=== PATIENT | male | born 1935 | race Caucasian/White ===

== ENCOUNTER 2021-01-20 14:34 | Inpatient (IN) | payer MEDICARE ==
[~2021-01-20] VITALS: Ht 180.3 cm; Wt 72.6 kg
--- NOTE | ~2021-01-20 | EC ---
PATIENT:RITA SHARP DATE OF SERVICE: 01/20/21 SEX: M MEDICAL RECORD: [id number] DATE OF : 36 LOCATION:D.M2 D.212 AGE OF PATIENT: 85 ADMISSION DATE: 01/20/21 REFERRING PHYSICIAN: INTERPRETING PHYSICIAN: FANNIE IRENE MD ECHOCARDIOGRAM REPORT ECHO CHARGES 4 ECHO COMPLETE Date: 01/21/21 CLINICAL DIAGNOSIS: AFIB W/RVR ECHOCARDIOGRAPHIC MEASUREMENTS (adult normal given) AC root (d.<3.7cm) 4.1 cm LV Septum d (<1.2 cm> 0.7 cm Valve Excursion 1.4 cm LV Septum (systole) 1.1 cm Left Atria (s.<4.0cm> 4.3 cm LVPW d(<1.2cm) 0.8 cm RV (d.<2.3cm) 3.5 cm LVPW (sytole) 1.1 cm LV diastole(<5.6CM) 5.6 cm MV E-F(>70mm/sec) cm LV systole 4.4 cm LVOT Diameter 1.6 cm MV exc.(>10mm) 1.5 cm Est.ejection fraction (50-75%) % DOPPLER: LVIT cm/sec A 84 cm/sec E 56 cm/sec LA cm/sec RVSP 30 mmHg LVOT 111 cm/sec AOP1/2T m/s Asc. Ao 141 cm/sec RVOT 62 cm/sec RA cm/sec PA 76 cm/sec AV Gradient Peak 8.0 mmHg AV Mean 4.0 mmHg AV Area 2.2 cm MV Gradient Peak 4.7 mmHg MV Mean 1.7 mmHg MV Area cm COMMENTS: Binding Dyer: Alfonso LLOYD Hydraulic Assembler: 4 Dr. Irene TAPE# Pericardial Effusion N DATE OF SERVICE: Transthoracic echocardiogram FINDINGS: The left ventricle has mild concentric left ventricular hypertrophy. There are no regional wall motion abnormalities. The ejection fraction is 55%. Left atrium is mildly dilated. ECHOCARDIOGRAM REPORT [id number] RITA SHARP The right atrium appears to be mild to moderately dilated. The aortic valve is grossly normal. No evidence of stenosis or regurgitation. The mitral valve has mild mitral regurgitation. The tricuspid valve has mild tricuspid valve regurgitation with normal right ventricular systolic pressures. Pulmonic valve is not well visualized, but grossly normal. There is no pericardial effusion. There is no pleural effusion. There is no evidence of ASD or VSD. IMPRESSION: The patient has mild concentric left ventricular hypertrophy. The ejection fraction is normal. Diastolic function could not be assessed because the patient is in atrial fibrillation. TRANSINT:[id number] Voice Confirmation ID: [id number] DOCUMENT ID: [id number] FANNIE IRENE MD CC: [id number] DICTATION DATE: 01/21/21 1334 AIR CONDITIONING INSTALLER SUPERVISOR: 01/21/212126 ADM IN [place] [id number] [place] [id number]
--- NOTE | 2021-01-20 15:10 | NUR ---
PT BG 109
[2021-01-20 15:11] VITALS: BP 126/89
[2021-01-20 15:16] LABS: BASOPHILS 0.1 % (0-2); EOSINOPHILS 0.1 % (0-7); HEMATOCRIT 32.7 % (42.0-54.0); HEMOGLOBIN 11.3 g/dL (13.5-17.5); IMMATURE GRANULOCYTES 0.4 % (0-5); LYMPHOCYTE ABS# 0.56 10x3/uL (1.32-3.57); LYMPHOCYTES 3.5 % (15-50); MCH 29.7 pg (26.0-34.0); MCHC 34.6 g/dL (31.0-37.0); MCV 86.1 fL (80.0-100.0); MEAN PLATELET VOLUME 8.9 fL (7.4-10.4); MONOCYTES 8.9 % (2-11); RDW 13.2 % (11.5-14.5); WBC 16.2 10x3/uL (4.8-10.8)
[2021-01-20 15:19] LABS: PLATELET COUNT 417 10x3/uL (130-400)
[2021-01-20 15:29] LABS: CALC OSMOLALITY 283 mosm/kg (275-300); CALCIUM 8.8 mg/dL (8.5-10.1); CARBON DIOXIDE 26.2 mmol/L (21.0-32.0); CHLORIDE - SERUM 93 mmol/L (98-107); CREATININE - SERUM 2.4 mg/dL (0.6-1.3); GLUCOSE 111 mg/dL (74-106); POTASSIUM - SERUM 3.3 mmol/L (3.5-5.1); SODIUM 130 mmol/L (136-145); UREA NITROGEN 73 mg/dL (7-18); eGFR NON AFRICAN AMERICAN 27 mL/min (90-120)
[2021-01-20 15:33] LABS: APTT 48.1 SECONDS (22.8-39.4); INR 1.5 (0.85-1.17); PROTIME 16.8 SECONDS (11.6-15.0)
[2021-01-20 15:46] LABS: ALBUMIN 2.9 g/dL (3.4-5.0); ALKALINE PHOSPHATASE 77 U/L (30-120); ALT (SGPT) 82 U/L (10-68); BILIRUBIN - TOTAL 0.69 mg/dL (0.2-1.3); CKMB 12.2 U/L (0.0-3.6); CREATINE KINASE 528 UL (21-232); MAGNESIUM - SERUM 2.5 mg/dL (1.8-2.4); PROTEIN - SERUM 6.9 g/dL (6.4-8.2); TROPONIN-I 0.051 ng/mL (0.000-0.060)
[2021-01-20 17:29] VITALS: BP 140/82
--- NOTE | 2021-01-20 17:48 | NUR ---
PT UP TO BEDSIDE COMMODE. BACK TO BED WITHOUT INCODENT
--- NOTE | 2021-01-20 18:05 | NUR ---
REPORT GIVEN TO BARRERA HESTER, VERBAL ACKNOWLEDGMENT OBTAINED
--- NOTE | 2021-01-20 18:44 | NUR ---
TRANSFER FROM ER BY STRETCHER. OREINTED TO ROOM. CALL LIGHT IN REACH. WILL CONT. PLAN OF CARE.
--- NOTE | 2021-01-20 20:24 | NUR ---
PT ASKED ABOUT HOME MEDICATIONS. PT ONLY STATES THAT HE CANT TELL ME RIGHT NOW. PT CONCERNED WITH URINATING FREQUENTLY AND IS UNWILLING TO TALK ABOUT ANYTHING FURTHER. PT DID STATE THAT HE QUIT SMOKING 15 YEARS AGO AND DOES NOT HAVE A HX OF CARDIAC STENTS.
[2021-01-20 20:43] LABS: % SATURATION 15 % (15-55); IRON 30 ug/dl (35-150); TOTAL IRON BIND CAPACITY 197 ug/dl (260-445); UNSAT IRON BIND CAPACITY 167 ug/dl (150-375)
[2021-01-20 21:07] VITALS: BP 123/68
[2021-01-20 22:22] LABS: MAGNESIUM - SERUM 2.4 mg/dL (1.8-2.4); THYROID STIMULATING HORMONE 1.04 uIU/mL (0.36-3.74)
[2021-01-21 01:57] VITALS: BP 120/56
--- NOTE | 2021-01-21 04:22 | NUR ---
PT HAS BEEN [id number] WITH CARE. WILL SCREAM OUT FOR HELP BUT NOT SAY ANYTHING WHEN SOMEONE ATTEMPTS TO MEET HIS NEEDS. PT PINCHING CARDIZEM GTT TUBING TO ATTEMPT TO STOP THE INFUSION. HR 90-120 UCAF. PT WILL NOT ANSWER QUESTIONS WHEN STAFF TRYS TO ASSESS. UABLE TO OBTAIN ADMISSION HX OR HOME MEDS.
--- NOTE | 2021-01-21 04:37 | NUR ---
PT AGGRESSIVE WITH LAB, BEING RUDE AND DEMANDING. INFORMED PT WE NEEDED A URINE SAMPLE, NOW PT IS BEING INCONT.
[2021-01-21 06:14] VITALS: BP 131/59
[2021-01-21] MEDS ORDERED: LOSARTAN-HCTZ1 EAC1 PO (07:17)
[2021-01-21] MEDS ORDERED: LOPRESSOR25 MG PO (07:18)
[2021-01-21] MEDS ORDERED: ELIQUIS5 MG PO (07:18)
[2021-01-21 07:24] LABS: BASOPHILS 0 % (0-2); EOSINOPHILS 0.1 % (0-7); HEMATOCRIT 30.7 % (42.0-54.0); HEMOGLOBIN 10.3 g/dL (13.5-17.5); IMMATURE GRANULOCYTES 0.4 % (0-5); LYMPHOCYTE ABS# 0.56 10x3/uL (1.32-3.57); LYMPHOCYTES 4.2 % (15-50); MCH 29.2 pg (26.0-34.0); MCHC 33.6 g/dL (31.0-37.0); MEAN PLATELET VOLUME 9.1 fL (7.4-10.4); MONOCYTES 11.5 % (2-11); NEUTROPHIL ABS# 11.19 10x3/uL (1.78-5.38); NEUTROPHILS 83.8 % (40-80); PLATELET COUNT 450 10x3/uL (130-400); RBC 3.53 10x6/uL (4.20-6.10); RDW 13.3 % (11.5-14.5); WBC 13.4 10x3/uL (4.8-10.8)
[2021-01-21 07:39] LABS: ALBUMIN 2.8 g/dL (3.4-5.0); ANION GAP 15.9 mmol/L (8-16); BILIRUBIN - TOTAL 0.65 mg/dL (0.2-1.3); CALCIUM 8.1 mg/dL (8.5-10.1); CARBON DIOXIDE 24.2 mmol/L (21.0-32.0); CREATININE - SERUM 1.7 mg/dL (0.6-1.3); MAGNESIUM - SERUM 2.1 mg/dL (1.8-2.4); POTASSIUM - SERUM 3.1 mmol/L (3.5-5.1); PROTEIN - SERUM 5.8 g/dL (6.4-8.2)
[2021-01-21 08:12] VITALS: BP 141/70
--- NOTE | 2021-01-21 08:30 | NUR ---
CARNEY CATH INSERTED FOR URINARY FREQENCY AND RETENTION USUSING 16 FR CATH AND 10CC BULB. OUTPUT CLEAR AND YELLOW.
--- NOTE | 2021-01-21 09:00 | NUR ---
URINE SPECIMEN COLLECTED AND TAKEN TO LAB. WILL MONITOR.
[2021-01-21 09:55] LABS: BILIRUBIN NEGATIVE (NEGATIVE); KETONE SMALL mg/dL (NEGATIVE); NITRITE NEGATIVE (NEGATIVE); UROBILINOGEN NORMAL mg/dL (< 2)
[2021-01-21 09:56] LABS: SQUAMOUS EPITHELIAL RARE HPF (0-4); WHITE CELLS - URINE 0-5 HPF (0-1)
--- NOTE | 2021-01-21 14:59 | NUR ---
HAS CONVERTED TO SR WITH PACS AND PVCS. WILL CONT. PLAN OF CARE.
[2021-01-21 19:00] VITALS: BP 126/76
--- NOTE | 2021-01-21 19:37 | NUR ---
RECEIVED REPORT, WILL ASSUME CARE OF PT, SLEEPING, NO DISTRESS NOTICED AT THIS TIME, CALL LIGHT IN REACH, SRX2, BED ALARM IS ON, WILL CONTINUE PLAN OF CARE
[2021-01-22] VITALS: BP 157/85
[2021-01-22 04:00] VITALS: BP 175/97
--- NOTE | 2021-01-22 04:08 | NUR ---
I have reviewed this patient and I concur with the Shift Assessment completed by the Licensed Practical Nurse today this shift.
[2021-01-22 05:21] LABS: BASOPHILS 0.1 % (0-2); EOSINOPHILS 0.3 % (0-7); HEMATOCRIT 33.2 % (42.0-54.0); HEMOGLOBIN 10.8 g/dL (13.5-17.5); IMMATURE GRANULOCYTES 0.3 % (0-5); LYMPHOCYTE ABS# 0.65 10x3/uL (1.32-3.57); LYMPHOCYTES 6.4 % (15-50); MCH 28.9 pg (26.0-34.0); MCHC 32.5 g/dL (31.0-37.0); MCV 88.8 fL (80.0-100.0); MEAN PLATELET VOLUME 8.5 fL (7.4-10.4); MONOCYTES 16.8 % (2-11); NEUTROPHIL ABS# 7.75 10x3/uL (1.78-5.38); NEUTROPHILS 76.1 % (40-80); PLATELET COUNT 372 10x3/uL (130-400); RBC 3.74 10x6/uL (4.20-6.10); RDW 13.2 % (11.5-14.5); WBC 10.2 10x3/uL (4.8-10.8)
[2021-01-22 05:48] LABS: ALBUMIN 2.7 g/dL (3.4-5.0); ANION GAP 13.8 mmol/L (8-16); BILIRUBIN - TOTAL 0.69 mg/dL (0.2-1.3); CALCIUM 8.7 mg/dL (8.5-10.1); CARBON DIOXIDE 24.5 mmol/L (21.0-32.0); MAGNESIUM - SERUM 1.9 mg/dL (1.8-2.4); POTASSIUM - SERUM 3.3 mmol/L (3.5-5.1); PROTEIN - SERUM 6.2 g/dL (6.4-8.2)
[2021-01-22 06:02] LABS: CREATININE - SERUM 1.2 mg/dL (0.6-1.3)
[2021-01-22 07:00] VITALS: BP 162/86
--- NOTE | 2021-01-22 08:00 | NUR ---
AM MEDS GIVEN AT THIS TIME. PT PULLED UP IN BED, AND ASSISTED SET UP WITH BREAKFAST. RR EVEN NON LABORED ON ROOM AIR. PT AWAKE AND ALERT, DENIES ANY NEEDS. CLWR.
[2021-01-22 11:00] VITALS: BP 156/84
--- NOTE | 2021-01-22 12:23 | NUR ---
SPOKE WITH PT SON AND PT AT THIS TIME REGARDING TREATMENT PLAN AND MEDICATIONS/VITAL SIGNS. PT SHORT TEMPERED NOTED BUT CALM. PT DENIES ANY NEEDS AT THIS TIME. CLWR.
[2021-01-22 14:31] VITALS: Ht 180.3 cm; Wt 72.6 kg
--- NOTE | 2021-01-22 14:57 | NUR ---
REHAB NOTE: WENT TO ROOM TO DISCUSS REFERRAL TO INPATIENT REHAB. PATIENT IS VERY ARGUMENTATIVE AND SON AT BEDSIDE IS NOT ASSISTING TO MAKE THE SITUTATION BETTER. PT AND HIS SON STATE THAT HE WILL NOT STAY FOR 7-10 DAYS OF THERAPY, THAT HE PROBABLY WOULD NOT EVEN STAY 3 DAYS. THAT HE IS READY TO LEAVE AND THEY WANT OTHER OPTIONS. I HAVE EXPLAINED THIS TO THE JUAN MONTENEGRO RN, AND WE WILL WAIT TO SEE IF PATIENT CHANGES HIS MIND. PATIENT HAS [facility] AND WILL HAVE TO HAVE PREAUTHORIZATION IN ORDER TO COME, AND THIS HAS BEEN EXPLAINED TO THE PATIENT. LANDON SMITH RN CLINICAL LIAISON INPATIENT REHAB.
--- NOTE | 2021-01-22 14:59 | MORECARE ---
CASE MANAGEMENT DISCHARGE SUMMARY PATIENT: FABRICIO MONTES UNIT: [id number] ADM DATE: 01/20/21 AGE: 85 : 36 SEX: M ROOM/BED: D.2120 AUTHOR: SANTHOSH,DOC PHYSICIAN: REFERRING PHYSICIAN: MAX JEFFRIES DO DATE OF SERVICE: 01/22/21 Case Management Discharge Planning Summary CT Patient Name: FABRICIO MONTES Attending MD : MAX PETIT Medical Record: [id number] Encounter : [id number] Facility : [address] [place] [address] Admission Date : 116:34 Center Discharge Date : [address] [place] [address] Date of : DC Plan ID : [id number] Age/Sex/Martia : 85/ M/D Printed on : 01/22/21 14:57 CT DCP Review Details Anticipated D/C: Expected LOS : Case Status : INITIATED - Initial Reviewe: [id number] - Tarah Quintana Initial Review: 01/22/2021 Planned Disposi: 01 - Home or Self Care (Routine Discharge) Final Discharge: - Final Reviewer : : Final Review : DCP Focus Questions & Answers DCP Screen High Risk Factors: Poor social support DCP Evaluation Patient and/or caregiver agree upon recommended No discharge plan? Patient's current cognitive status: *Oriented to person, place, situation, time and present Patient gives permission to discuss discharge Fabricio Montes - son - [phone] plans with: (name, relationship and number) Patient's ability to cope with chronic illness d. No chronic illness Alternate discharge plan (if recommended plan not May need home health if not in agreement agreed upon by patient and/or caregiver): to inpatient rehab Functional screen assessment: No issues identified Physical Status: Mobility impaired Equipment needed for post hospitalization: None Is there a likelihood that the patient will Yes require additional services to return to the preadmission environment? Functional screen comments: New onset of weakness and falling Living Arrangements: Home Alone with Support Partial Dependence, assistance required for: Ambulation / Mobility Other Equipment comments: May need a walker at discharge Results of this evaluation have been discussed Patient with: Results of this evaluation have been discussed Family with: Patient with capacity for self-care or can be No cared for in same environment as prior to hospitalization? Baseline cognitive status: *Oriented to person, place, situation, time and present Would patient like to participate in any Care Not applicable Coordination programs (if applicable): Equipment in use: None Psychosocial status: Adult with physical limitations Resources / Services in place: None Problems identified by the patient regarding Lives alone with frequent falls discharge: DCP Re-evaluation Would patient like to participate in any Care Not applicable Coordination programs (if applicable): [facility] FABRICIO MONTES MR#: [id number] /Age/Sex/Pzjyre30-Woy-93 /85/M /D Attending Physician Name: YORDAN JEFFRIES [id number] Patient Account:[id number] [facility] Page -1 of 1 All edits/amendments must be made on the electronic document DICTATION DATE: 01/22/211456 WATERSHED ENGINEER: KELSIE 01/22/211456 RPT#: [id number] DC DATE: STATUS: ADM IN [facility] [address] [place] [address] END OF REPORT
[2021-01-22 15:00] VITALS: BP 163/85
--- NOTE | 2021-01-22 15:36 | NUR ---
MEDS GIVEN PER EMAR INCLUDING PRN TYLENOL D/T NECK/SHOULDER PAIN. PT RR EVEN NON LABORED ON ROOM AIR. PT AWAKE AND ALRT. SON AT BEDSIDE. NO NEEDS VOICED. CLWR.
--- NOTE | 2021-01-22 15:59 | MORECARE ---
CASE MANAGEMENT DISCHARGE SUMMARY PATIENT: FABRICIO MONTES UNIT: [id number] ADM DATE: 01/20/21 AGE: 85 : 36 SEX: M ROOM/BED: D.2120 AUTHOR: SANTHOSH,DOC PHYSICIAN: REFERRING PHYSICIAN: MAX JEFFRIES DO DATE OF SERVICE: 01/22/21 Case Management Discharge Planning Summary CT Patient Name: FABRICIO MONTES Attending MD : MAX PETIT Medical Record: [id number] Encounter : [id number] Facility : [address] [place] [address] Medical Admission Date : 116:34 Center Discharge Date : [address] [place] [address] Date of : DC Plan ID : [id number] Age/Sex/Martia : 85/ M/D Printed on : 01/22/21 15:58 CT DCP Review Details Anticipated D/C: Expected LOS : Case Status : INITIATED - Initial Reviewe: [id number] - Tarah Quintana Initial Review: 01/22/2021 Planned Disposi: 01 - Home or Self Care (Routine Discharge) Final Discharge: - Final Reviewer : : Final Review : Comments CT Entered Date Type Reviewer 01/22/21 14:49 CT Discharge Planning Tarah Quintana Comment CM was called to the room by the patient's nurse per son's request to discuss discharge planning/needs. Patient in agreement to discuss with son in the room. Son states his dad lives alone. States "he can't go home alone like this." States he is unable to stay with his father, but he may have someone else stay with him. I discussed availability of SNF, inpatient rehab and home health. They both seem confused as to why he can't stay in acute setting for rehab. I explained the difference between acute care and rehab care and 3 hours of therapy on inpatient rehab vs one hour in a skilled facility. Patient states he is not going to a fpc. Patient and son both seem agreeable to home health on discharge. They both seem unsure about inpatient rehab, but would like me to see if his insurance will authorize it prior to going there. I explained to them both, that even if they authorize rehab and he gains his strength and wants to go home, he can go home if he desires. Patient signs a ZEE for [facility] inpatient rehab so they may screen him and get a PA from insurance. They both seem uncertain if that is the final plan and will re evaluate tomorrow. CM will continue to follow and assist with discharge planning/needs. DCP Focus Questions & Answers DCP Screen High Risk Factors: Poor social support DCP Evaluation Patient and/or caregiver agree upon recommended No discharge plan? Patient's current cognitive status: *Oriented to person, place, situation, time and present Patient gives permission to discuss discharge Fabricio Montes Jr - elliott - [phone] plans with: (name, relationship and number) Patient's ability to cope with chronic illness d. No chronic illness Alternate discharge plan (if recommended plan not May need home health if not in agreement agreed upon by patient and/or caregiver): to inpatient rehab Functional screen assessment: No issues identified Physical Status: Mobility impaired Equipment needed for post hospitalization: None Is there a likelihood that the patient will Yes require additional services to return to the preadmission environment? Functional screen comments: New onset of weakness and falling Living Arrangements: Home Alone with Support Partial Dependence, assistance required for: Ambulation / Mobility Other Equipment comments: May need a walker at discharge Results of this evaluation have been discussed Patient with: Results of this evaluation have been discussed Family with: Patient with capacity for self-care or can be No cared for in same environment as prior to hospitalization? Baseline cognitive status: *Oriented to person, place, situation, time and present Would patient like to participate in any Care Not applicable Coordination programs (if applicable): Equipment in use: None Psychosocial status: Adult with physical limitations Resources / Services in place: None Problems identified by the patient regarding Lives alone with frequent falls discharge: DCP Re-evaluation Would patient like to participate in any Care Not applicable Coordination programs (if applicable): [facility] FABRICIO MONTES MR#: [id number] /Age/Sex/Raxoep18-Qbw-36 /85/M /D Attending Physician Name: YORDAN JEFFRIES [id number] Patient Account:[id number] [facility] Page -1 of 1 All edits/amendments must be made on the electronic document DICTATION DATE: 01/22/211557 BEVERAGE MANAGER: KELSIE 01/22/211557 RPT#: [id number] DC DATE: STATUS: ADM IN [facility] [address] [place] [address] END OF REPORT
--- NOTE | 2021-01-22 19:08 | NUR ---
CALLED TO ROOM WITH C/O NOT HAVING WHAT HE NEEDS TO BRUSH HIS TEETH. LEFT ROOM AND RETURNED WITH SUPPLIES FOR HIM TO BRUSH HIS TEETH. ALERT AND ORIENTED X4. REMAINS BEDFAST. USES URINAL IN BED. IV TO LT AC AND TO RT FA SL. TELEMETRY IN PLACE. DENIES ANY OTHER NEEDS AT THIS TIME.
[2021-01-22 20:00] VITALS: BP 139/79
[2021-01-23 04:00] VITALS: BP 152/85
[2021-01-23 05:37] LABS: BASOPHILS 0.1 % (0-2); EOSINOPHILS 1.4 % (0-7); HEMATOCRIT 30.6 % (42.0-54.0); HEMOGLOBIN 9.8 g/dL (13.5-17.5); IMMATURE GRANULOCYTES 0.4 % (0-5); LYMPHOCYTES 7.6 % (15-50); MCH 28.5 pg (26.0-34.0); MONOCYTES 17.1 % (2-11); NEUTROPHIL ABS# 6.76 10x3/uL (1.78-5.38); NEUTROPHILS 73.4 % (40-80); PLATELET COUNT 374 10x3/uL (130-400); RBC 3.44 10x6/uL (4.20-6.10); RDW 13.3 % (11.5-14.5); WBC 9.2 10x3/uL (4.8-10.8)
[2021-01-23 06:08] LABS: ALBUMIN 2.4 g/dL (3.4-5.0); ANION GAP 11.4 mmol/L (8-16); BILIRUBIN - TOTAL 0.59 mg/dL (0.2-1.3); CALCIUM 7.7 mg/dL (8.5-10.1); CARBON DIOXIDE 26.1 mmol/L (21.0-32.0); CREATININE - SERUM 1.1 mg/dL (0.6-1.3); MAGNESIUM - SERUM 1.6 mg/dL (1.8-2.4); POTASSIUM - SERUM 3.5 mmol/L (3.5-5.1); PROTEIN - SERUM 5.7 g/dL (6.4-8.2)
[2021-01-23 07:00] VITALS: BP 149/81
--- NOTE | 2021-01-23 11:24 | MORECARE ---
CASE MANAGEMENT DISCHARGE SUMMARY PATIENT: FABRICIO MONTES UNIT: [id number] ADM DATE: 01/20/21 AGE: 85 : 36 SEX: M ROOM/BED: D.2120 AUTHOR: SANTHOSH,DOC PHYSICIAN: REFERRING PHYSICIAN: MAX JEFFRIES DO DATE OF SERVICE: 01/23/21 Case Management Discharge Planning Summary CT Patient Name: FABRICIO MONTES Attending MD : MAX PETIT Medical Record: [id number] Encounter : [id number] Facility : [address] [place] [address] Medical Admission Date : 116:34 Center Discharge Date : [address] [place] [address] Date of : DC Plan ID : [id number] Age/Sex/Martia : 85/ M/D Printed on : 01/23/21 11:23 CT DCP Review Details Anticipated D/C: Expected LOS : Case Status : INITIATED - Initial Reviewe: [id number] - Tarah Quintana Initial Review: 01/22/2021 Planned Disposi: 01 - Home or Self Care (Routine Discharge) Final Discharge: - Final Reviewer : : Final Review : Comments CT Entered Date Type Reviewer 01/22/21 14:49 CT Discharge Planning Tarah Quintana Comment CM was called to the room by the patient's nurse per son's request to discuss discharge planning/needs. Patient in agreement to discuss with son in the room. Son states his dad lives alone. States "he can't go home alone like this." States he is unable to stay with his father, but he may have someone else stay with him. I discussed availability of SNF, inpatient rehab and home health. They both seem confused as to why he can't stay in acute setting for rehab. I explained the difference between acute care and rehab care and 3 hours of therapy on inpatient rehab vs one hour in a skilled facility. Patient states he is not going to a care home. Patient and son both seem agreeable to home health on discharge. They both seem unsure about inpatient rehab, but would like me to see if his insurance will authorize it prior to going there. I explained to them both, that even if they authorize rehab and he gains his strength and wants to go home, he can go home if he desires. Patient signs a ZEE for [facility] inpatient rehab so they may screen him and get a PA from insurance. They both seem uncertain if that is the final plan and will re evaluate tomorrow. CM will continue to follow and assist with discharge planning/needs. DCP Focus Questions & Answers DCP Screen High Risk Factors: Poor social support DCP Evaluation Patient and/or caregiver agree upon recommended No discharge plan? Patient's current cognitive status: *Oriented to person, place, situation, time and present Patient gives permission to discuss discharge Fabricio Montes Jr - elliott - [phone] plans with: (name, relationship and number) Patient's ability to cope with chronic illness d. No chronic illness Alternate discharge plan (if recommended plan not May need home health if not in agreement agreed upon by patient and/or caregiver): to inpatient rehab Functional screen assessment: No issues identified Physical Status: Mobility impaired Equipment needed for post hospitalization: None Is there a likelihood that the patient will Yes require additional services to return to the preadmission environment? Functional screen comments: New onset of weakness and falling Living Arrangements: Home Alone with Support Partial Dependence, assistance required for: Ambulation / Mobility Other Equipment comments: May need a walker at discharge Results of this evaluation have been discussed Patient with: Results of this evaluation have been discussed Family with: Patient with capacity for self-care or can be No cared for in same environment as prior to hospitalization? Baseline cognitive status: *Oriented to person, place, situation, time and present Would patient like to participate in any Care Not applicable Coordination programs (if applicable): Equipment in use: None Psychosocial status: Adult with physical limitations Resources / Services in place: None Problems identified by the patient regarding Lives alone with frequent falls discharge: DCP Re-evaluation Would patient like to participate in any Care Not applicable Coordination programs (if applicable): [facility] FABRICIO MONTES MR#: [id number] /Age/Sex/Labqbf73-Xjr-83 /85/M /D Attending Physician Name: YORDAN JEFFRIES [id number] Patient Account:[id number] [facility] Page -1 of 1 All edits/amendments must be made on the electronic document DICTATION DATE: 01/23/21 112 LARGE ANIMAL VETERINARIAN: KELSIE 01/23/21 1123 RPT#: [id number] DC DATE: STATUS: ADM IN [facility] [address] [place] [address] END OF REPORT
[2021-01-23 12:00] VITALS: BP 113/86
[2021-01-23 15:00] VITALS: BP 130/89
--- NOTE | 2021-01-23 16:15 | NUR ---
REHAB PRESCREEN This patient is now agreeable to inpatient rehab. OT evaluation is pending. We will begin prior authorization process when completed. Thank you for this referral! Fern Estrada, [employer] [facility] [employer]
--- NOTE | 2021-01-23 16:48 | PN ---
PATIENT:RITA SHARP MEDICAL RECORD: [id number] LOCATION:[address] ADMISSION DATE: 01/20/21 PROGRESS NOTE DATE OF SERVICE: 01/22/2021 ADDENDUM This note is a clarification on the evaluation done by Kiki Varela APN yesterday December. The evaluation indicates that the patient has clear evidence of dementia, but no evidence of aggressive behavior or suicidal thought. I agree with her assessment, but the referral to inpatient psychiatric care is not appropriate. The patient does not have elements of dangerousness that would necessitate this level of care and his outpatient psychiatric needs can be met to fully evaluate the situation. Simply needing an evaluation of a dementing process and/or supervision associated with dementia is not criteria for an inpatient geriatric stay. TRANSINT:[id number] Voice Confirmation ID: [id number] DOCUMENT ID: [id number] DAVID HERNANDEZ MD at 1648 CC: [id number] DICTATION DATE: 01/22/21 171 CUSTOMER MARKETING ASSISTANT: 01/23/21 0040 ADM IN [facility] [address] [place] [address]
--- NOTE | 2021-01-23 18:03 | NUR ---
OT NOTE: PT COMPLETED SUPINE TO SIT WITH CGA. PT COMPLETED ADL MOB WITH CGA-MIN A USING RW. [id number] THANK YOU, GASTON CHÁVEZ
[2021-01-23 19:00] VITALS: BP 133/85
--- NOTE | 2021-01-23 19:46 | NUR ---
RECIEVED UP IN CHAIR WATCHING TV. ALERT AND ORIENTED X4. UP WITH ASSIST. IV TO LT FA SL. TELEMETRY IN PLACE. CONT TO BLADDER TRAIN. DENIES ANY NEEDS AT THIS TIME.
--- NOTE | 2021-01-24 02:27 | MORECARE ---
CASE MANAGEMENT DISCHARGE SUMMARY PATIENT: FABRICIO MONTES UNIT: [id number] ADM DATE: 01/20/21 AGE: 85 : 36 SEX: M ROOM/BED: D.2120 AUTHOR: SANTHOSH,DOC PHYSICIAN: REFERRING PHYSICIAN: MAX JEFFRIES DO DATE OF SERVICE: 01/24/21 Case Management Discharge Planning Summary CT Patient Name: FABRICIO MONTES Attending MD : MAX PETIT Medical Record: [id number] Encounter : [id number] Facility : [address] [place] [address] Admission Date : 116:34 Center Discharge Date : [address] [place] [address] Date of : DC Plan ID : [id number] Age/Sex/Martia : 85/ M/D Printed on : 01/24/21 2:25 CT DCP Review Details Anticipated D/C: Expected LOS : Case Status : INITIATED - Initial Reviewe: [id number] - Tarah Quintana Initial Review: 01/22/2021 Planned Disposi: 01 - Home or Self Care (Routine Discharge) Final Discharge: - Final Reviewer : : Final Review : Comments CT Entered Date Type Reviewer 01/24/21 1:56 CT Discharge Planning Areli Timmons Comment CM was called to patient room to discuss d/c planning/ need. Patient and his son are in room and CM was asked when he was going to rehab. CM stated that I thought that you all was still deciding on what to do at discharge. Son stated we agreed to go to rehab because he can't go home alone the way he is. He has agreed to stay for the 7days now. CM called inpatient rehab to see if auth had been started. Kusum stated that no it was put on hold. CM went back and spoke with son that rehab will send off for auth from insurance and wait to see if patient approved. son asked if rooms are setup the same as in acute hospital. CÉSAR explained that patient they have double occupancy rooms and he stated that was a no go, He said the patient will never agree to go there and share a room. CÉSAR explained that [facility] has private rooms if wants CM to send referral there. Patient / son both agree for referral to be sent to [facility]. CM sent referral will await auth. 01/22/21 14:49 CT Discharge Planning Tarah Quintana Comment CM was called to the room by the patient's nurse per son's request to discuss discharge planning/needs. Patient in agreement to discuss with son in the room. Son states his dad lives alone. States "he can't go home alone like this." States he is unable to stay with his father, but he may have someone else stay with him. I discussed availability of SNF, inpatient rehab and home health. They both seem confused as to why he can't stay in acute setting for rehab. I explained the difference between acute care and rehab care and 3 hours of therapy on inpatient rehab vs one hour in a skilled facility. Patient states he is not going to a alf. Patient and son both seem agreeable to home health on discharge. They both seem unsure about inpatient rehab, but would like me to see if his insurance will authorize it prior to going there. I explained to them both, that even if they authorize rehab and he gains his strength and wants to go home, he can go home if he desires. Patient signs a ZEE for [facility] inpatient rehab so they may screen him and get a PA from insurance. They both seem uncertain if that is the final plan and will re evaluate tomorrow. CM will continue to follow and assist with discharge planning/needs. DCP Focus Questions & Answers DCP Screen High Risk Factors: Poor social support DCP Evaluation Patient's ability to cope with chronic illness d. No chronic illness Patient gives permission to discuss discharge Fabricio Montes Jr - elliott - [phone] plans with: (name, relationship and number) Patient's current cognitive status: *Oriented to person, place, situation, time and present Patient and/or caregiver agree upon recommended No discharge plan? Physical Status: Mobility impaired Functional screen assessment: No issues identified Alternate discharge plan (if recommended plan not May need home health if not in agreement agreed upon by patient and/or caregiver): to inpatient rehab Partial Dependence, assistance required for: Ambulation / Mobility Living Arrangements: Home Alone with Support Functional screen comments: New onset of weakness and falling Is there a likelihood that the patient will Yes require additional services to return to the preadmission environment? Equipment needed for post hospitalization: None Baseline cognitive status: *Oriented to person, place, situation, time and present Patient with capacity for self-care or can be No cared for in same environment as prior to hospitalization? Results of this evaluation have been discussed Family with: Results of this evaluation have been discussed Patient with: Other Equipment comments: May need a walker at discharge Would patient like to participate in any Care Not applicable Coordination programs (if applicable): Equipment in use: None Psychosocial status: Adult with physical limitations Resources / Services in place: None Problems identified by the patient regarding Lives alone with frequent falls discharge: DCP Re-evaluation Would patient like to participate in any Care Not applicable Coordination programs (if applicable): [facility] FABRICIO MONTES MR#: [id number] /Age/Sex/Febzda68-Ogs-85 //M /D Attending Physician Name: YORDAN JEFFRIES [id number] Patient Account:[id number] [facility] Page -1 of 1 All edits/amendments must be made on the electronic document DICTATION DATE: 01/24/21224 AUTOMATIC COIN MACHINE MECHANIC: KELSIE 01/24/21224 RPT#: [id number] DC DATE: STATUS: ADM IN [facility] [address] [place] [address] END OF REPORT
[2021-01-24 04:00] VITALS: BP 165/94
[2021-01-24 05:23] LABS: BASOPHILS 0.1 % (0-2); EOSINOPHILS 1.3 % (0-7); HEMATOCRIT 31.9 % (42.0-54.0); HEMOGLOBIN 10.5 g/dL (13.5-17.5); IMMATURE GRANULOCYTES 0.5 % (0-5); LYMPHOCYTE ABS# 0.76 10x3/uL (1.32-3.57); LYMPHOCYTES 7.3 % (15-50); MCH 29.2 pg (26.0-34.0); MCHC 32.9 g/dL (31.0-37.0); MCV 88.6 fL (80.0-100.0); MEAN PLATELET VOLUME 9.2 fL (7.4-10.4); NEUTROPHIL ABS# 7.78 10x3/uL (1.78-5.38); NEUTROPHILS 74.8 % (40-80); PLATELET COUNT 401 10x3/uL (130-400); RDW 13.4 % (11.5-14.5); WBC 10.4 10x3/uL (4.8-10.8)
[2021-01-24 06:03] LABS: ALBUMIN 2.7 g/dL (3.4-5.0); BILIRUBIN - TOTAL 0.57 mg/dL (0.2-1.3); CALCIUM 8.1 mg/dL (8.5-10.1); CARBON DIOXIDE 23.7 mmol/L (21.0-32.0); CREATININE - SERUM 1.1 mg/dL (0.6-1.3); MAGNESIUM - SERUM 1.6 mg/dL (1.8-2.4); POTASSIUM - SERUM 3.7 mmol/L (3.5-5.1); PROTEIN - SERUM 6.2 g/dL (6.4-8.2)
[2021-01-24 07:54] VITALS: BP 159/76
--- NOTE | 2021-01-24 10:32 | NUR ---
PT VERY ARGUMENTATIVE ABOUT EVERY INTERVENTION OR EDUCATION PROVIDED BY RN. REPEATEDLY STATING HE CAN GET UP BY HIMSELF BUT IS CLEARLY VERY UNSTEADY AND A HIGH FALL RISK. NURSE ATTEMPTED TO EDUCATE PATIENT ON FALL RISKS. HE REFUSED ANY EDUCATION STATING HE NEEDED PT. PT IS ALREADY CONSULTED AND PATIENT WAS INFORMED HE WOULD SEE THEM TODAY. HE EXPLAINED THAT HE NEEDS MORE THAN JUST ONCE A DAY AND IF THEY OR THE NURSE WERENT WILLING TO EXERCISE WITH HIM THROUGHOUT THE DAY HE WOULD GET UP BY HIMSELF. NURSE TOLD HIM TO CALL IF HE NEEDED TO GET UP BUT EXPLAINED THAT SHE COULD NOT BE IN THE ROOM CONTINUOUSLY EXERCISING WITH PATIENT. NURSE HAS BEEN IN THE ROOM A TREMENDOUS AMOUNT ALREADY TODAY. WILL CONTINUE TO MONITOR PATIENT BEHAVIOR.
--- NOTE | 2021-01-24 11:01 | NUR ---
OT NOTE: PT IN BED..HE IS VERY FRUSTRATED ADN ANXIOUS REGARDING DC PLANS. STATES THAT HE ASKED PHYSICIAN ABOUT HAVING VISION TESTED BUT THIS WOULD BE AN OUT PT PROCEDURE. ATTEMPTED DISCUSSING NUMEROUS COMPLAINTS WITH PT. HE DOES NOT UNDERSTAND WHY HE IS NOT CURRENTLY IN REHAB. EXPLAINED THAT THERE ARE STEPS THAT MUST BE TAKEN PRIOR TO TRANSFER TO REHAB, INCLUDING, INSURANCE, BED AVAILABILITY, ETC... CONTINUAL ATTEMPTS TO REDIRECT PT, HOWEVER, HE IS ANXIOUS AND NOT LISTENING TO THERAPIST.. EDUCATED ON BED MOB AND SAFETY WITH SIT TO STAND. IN ROOM AMB WITH RW AND CGA. PT FEELS THAT HE MAY NEED TO HAVE EYES CHECKED BECAUSE HE CANT VISUALLY FOCUS AND THINKS IT MAY BE RELATED TO MULTIPLE FALLS THAT HE HAS HAD. PT WAS ABLE TO AMB WITH P.T. WITH WALKER AND CGA X 250 FT BUT REQUIRED 1 REST BREAK TO SIT IN WC FOR APPROX 5 MIN TO CATCH HIS BREATH. PT IS WEAK AND UNSTEADY WITHOUT USE OF WALKER ADN VERBAL CUES. ENCOURAGED TO SIT UP IN CHAIR AND PT IN AGREEMENT. PT DOES NOT UNDERSTAND THAT ACUTE THERAPY CANT WORK WITH HIM ALL DAY. ATTEMPTED TO EXPLAIN THE DIFFERENCE BETWEEN ACUTE REHAB ADN IN PT REHAB.. ASSURED PT THAT I WOULD D/W WIND TURBINE INSTALLER TO MAKE SURE PLANS ARE STILL FOR IP REHAB. ARMINDA RANGEL, OTR/L [id number]
--- NOTE | 2021-01-24 11:04 | MORECARE ---
CASE MANAGEMENT DISCHARGE SUMMARY PATIENT: FABRICIO MONTES UNIT: [id number] ADM DATE: 01/20/21 AGE: 85 : 36 SEX: M ROOM/BED: D.2120 AUTHOR: SANTHOSH,DOC PHYSICIAN: REFERRING PHYSICIAN: MAX JEFFRIES DO DATE OF SERVICE: 01/24/21 Case Management Discharge Planning Summary CT Patient Name: FABRICIO MONTES Attending MD : MAX PETIT Medical Record: [id number] Encounter : [id number] Facility : [address] [place] [address] Admission Date : 116:34 Center Discharge Date : [address] [place] [address] Date of : DC Plan ID : [id number] Age/Sex/Martia : 85/ M/D Printed on : 01/24/21 11:03 CT DCP Review Details Anticipated D/C: Expected LOS : Case Status : INITIATED - Initial Reviewe: [id number] - Tarah Quintana Initial Review: 01/22/2021 Planned Disposi: 01 - Home or Self Care (Routine Discharge) Final Discharge: - Final Reviewer : : Final Review : Comments CT Entered Date Type Reviewer 01/24/21 11:02 CT Discharge Planning Tarah Quintana Comment CM called [facility] to check on status of referral and Divya states she has sent it to Sharon and they are working on the screen. 01/24/21 1:56 CT Discharge Planning Areli Timmons Comment CM was called to patient room to discuss d/c planning/ need. Patient and his son are in room and CM was asked when he was going to rehab. CÉSAR stated that I thought that you all was still deciding on what to do at discharge. Son stated we agreed to go to rehab because he can't go home alone the way he is. He has agreed to stay for the 7days now. CÉSAR called inpatient rehab to see if auth had been started. Kusum stated that no it was put on hold. CÉSAR went back and spoke with son that rehab will send off for auth from insurance and wait to see if patient approved. son asked if rooms are setup the same as in acute hospital. CÉSAR explained that patient they have double occupancy rooms and he stated that was a no go, He said the patient will never agree to go there and share a room. CM explained that [facility] has private rooms if wants CM to send referral there. Patient / son both agree for referral to be sent to [facility]. CM sent referral will await auth. 01/22/21 14:49 CT Discharge Planning Tarah Quintana Comment CM was called to the room by the patient's nurse per son's request to discuss discharge planning/needs. Patient in agreement to discuss with son in the room. Son states his dad lives alone. States "he can't go home alone like this." States he is unable to stay with his father, but he may have someone else stay with him. I discussed availability of SNF, inpatient rehab and home health. They both seem confused as to why he can't stay in acute setting for rehab. I explained the difference between acute care and rehab care and 3 hours of therapy on inpatient rehab vs one hour in a skilled facility. Patient states he is not going to a assisted. Patient and son both seem agreeable to home health on discharge. They both seem unsure about inpatient rehab, but would like me to see if his insurance will authorize it prior to going there. I explained to them both, that even if they authorize rehab and he gains his strength and wants to go home, he can go home if he desires. Patient signs a ZEE for [facility] inpatient rehab so they may screen him and get a PA from insurance. They both seem uncertain if that is the final plan and will re evaluate tomorrow. CM will continue to follow and assist with discharge planning/needs. DCP Focus Questions & Answers DCP Screen High Risk Factors: Poor social support DCP Evaluation Patient and/or caregiver agree upon recommended No discharge plan? Patient's current cognitive status: *Oriented to person, place, situation, time and present Patient gives permission to discuss discharge Fabricio Montes Jr - son - [phone] plans with: (name, relationship and number) Patient's ability to cope with chronic illness d. No chronic illness Alternate discharge plan (if recommended plan not May need home health if not in agreement agreed upon by patient and/or caregiver): to inpatient rehab Functional screen assessment: No issues identified Physical Status: Mobility impaired Equipment needed for post hospitalization: None Is there a likelihood that the patient will Yes require additional services to return to the preadmission environment? Functional screen comments: New onset of weakness and falling Living Arrangements: Home Alone with Support Partial Dependence, assistance required for: Ambulation / Mobility Other Equipment comments: May need a walker at discharge Results of this evaluation have been discussed Patient with: Results of this evaluation have been discussed Family with: Patient with capacity for self-care or can be No cared for in same environment as prior to hospitalization? Baseline cognitive status: *Oriented to person, place, situation, time and present Would patient like to participate in any Care Not applicable Coordination programs (if applicable): Equipment in use: None Psychosocial status: Adult with physical limitations Resources / Services in place: None Problems identified by the patient regarding Lives alone with frequent falls discharge: DCP Re-evaluation Would patient like to participate in any Care Not applicable Coordination programs (if applicable): [facility] FABRICIO MONTES MR#: [id number] /Age/Sex/Ujyaiy86-Wwz-33 //M /D Attending Physician Name: YORDAN JEFFRIES [id number] Patient Account:[id number] [facility] Page -1 of 1 All edits/amendments must be made on the electronic document DICTATION DATE: 01/24/211102 CONTINUOUS IMPROVEMENT COACH: KELSIE 01/24/21 110 RPT#: [id number] NM DATE: STATUS: ADM IN [facility] [address] [place] [address] END OF REPORT
[2021-01-24 11:45] VITALS: BP 167/98
--- NOTE | 2021-01-24 12:31 | NUR ---
Nutrition Follow-up: Pt states appetite is "not bad" and reports eating all of breakfast this AM. Denies N/V/C/D, chewing/swallowing difficulties. Awaiting placement. Diet: Cardiac No PO intake recorded No new wt; last wt: 160# (01/22) Labs noted: Glu 111, Ca 8.1, Mg 1.6, Alb 2.7 Meds noted: Florajen, Protonix, electrolyte protocol -RD will follow up within 7 days if pt still admitted.
--- NOTE | 2021-01-24 12:54 | MORECARE ---
CASE MANAGEMENT DISCHARGE SUMMARY PATIENT: FABRICIO SHARP UNIT: [id number] ADM DATE: 01/20/21 AGE: 85 : 36 SEX: M ROOM/BED: D.2120 AUTHOR: SANTHOSH,DOC PHYSICIAN: REFERRING PHYSICIAN: MAX JEFFRIES DO DATE OF SERVICE: 01/24/21 Case Management Discharge Planning Summary CT Patient Name: FABRICIO SHARP Attending MD : MAX PETIT Medical Record: [id number] Encounter : [id number] Facility : [address] [place] [address] Admission Date : 116:34 Center Discharge Date : [address] [place] [address] Date of : DC Plan ID : [id number] Age/Sex/Martia : 85/ M/D Printed on : 01/24/21 12:53 CT DCP Review Details Anticipated D/C: Expected LOS : Case Status : INITIATED - Initial Reviewe: [id number] - Tarah Quintana Initial Review: 01/22/2021 Planned Disposi: 01 - Home or Self Care (Routine Discharge) Final Discharge: - Final Reviewer : : Final Review : Comments CT Entered Date Type Reviewer 01/24/21 12:29 CT Discharge Planning Tarah Quintana Comment CÉSAR met with patient and his son per request. Patient is sitting up in chair and asking to go to [facility] for therapy. Son states they have decided that his father go to [facility] instead of [facility]. He is aware that [facility] is a skilled unit and Medicare requires 1 hour of therapy a day instead of the 3 hours required at an inpatient facility. ZEE signed by the son for [facility]. I called and left a message on Polina Jones's answering machine and clinical faxed. I notified Sharon that patient has decided on [facility]. 01/24/21 11:02 CT Discharge Planning Tarah Quintana Comment CÉSAR called [facility] to check on status of referral and Divya states she has sent it to Sharon and they are working on the screen. 01/24/21 1:56 CT Discharge Planning Areli Timmons Comment CM was called to patient room to discuss d/c planning/ need. Patient and his son are in room and CM was asked when he was going to rehab. CM stated that I thought that you all was still deciding on what to do at discharge. Son stated we agreed to go to rehab because he can't go home alone the way he is. He has agreed to stay for the 7days now. CM called inpatient rehab to see if auth had been started. Kusum stated that no it was put on hold. CM went back and spoke with son that rehab will send off for auth from insurance and wait to see if patient approved. son asked if rooms are setup the same as in acute hospital. CM explained that patient they have double occupancy rooms and he stated that was a no go, He said the patient will never agree to go there and share a room. CM explained that [facility] has private rooms if wants CM to send referral there. Patient / son both agree for referral to be sent to [facility]. CM sent referral will await auth. 01/22/21 14:49 CT Discharge Planning Tarah Quintana Comment CM was called to the room by the patient's nurse per son's request to discuss discharge planning/needs. Patient in agreement to discuss with son in the room. Son states his dad lives alone. States "he can't go home alone like this." States he is unable to stay with his father, but he may have someone else stay with him. I discussed availability of SNF, inpatient rehab and home health. They both seem confused as to why he can't stay in acute setting for rehab. I explained the difference between acute care and rehab care and 3 hours of therapy on inpatient rehab vs one hour in a skilled facility. Patient states he is not going to a alf. Patient and son both seem agreeable to home health on discharge. They both seem unsure about inpatient rehab, but would like me to see if his insurance will authorize it prior to going there. I explained to them both, that even if they authorize rehab and he gains his strength and wants to go home, he can go home if he desires. Patient signs a ZEE for [facility] inpatient rehab so they may screen him and get a PA from insurance. They both seem uncertain if that is the final plan and will re evaluate tomorrow. CM will continue to follow and assist with discharge planning/needs. DCP Focus Questions & Answers DCP Screen High Risk Factors: Poor social support DCP Evaluation Patient and/or caregiver agree upon recommended No discharge plan? Patient's current cognitive status: *Oriented to person, place, situation, time and present Patient gives permission to discuss discharge Fabricio gallagher - [phone] plans with: (name, relationship and number) Patient's ability to cope with chronic illness d. No chronic illness Alternate discharge plan (if recommended plan not May need home health if not in agreement agreed upon by patient and/or caregiver): to inpatient rehab Functional screen assessment: No issues identified Physical Status: Mobility impaired Equipment needed for post hospitalization: None Is there a likelihood that the patient will Yes require additional services to return to the preadmission environment? Functional screen comments: New onset of weakness and falling Living Arrangements: Home Alone with Support Partial Dependence, assistance required for: Ambulation / Mobility Other Equipment comments: May need a walker at discharge Results of this evaluation have been discussed Patient with: Results of this evaluation have been discussed Family with: Patient with capacity for self-care or can be No cared for in same environment as prior to hospitalization? Baseline cognitive status: *Oriented to person, place, situation, time and present Would patient like to participate in any Care Not applicable Coordination programs (if applicable): Equipment in use: None Psychosocial status: Adult with physical limitations Resources / Services in place: None Problems identified by the patient regarding Lives alone with frequent falls discharge: DCP Re-evaluation Would patient like to participate in any Care Not applicable Coordination programs (if applicable): [facility] FABRICIO SHARP MR#: [id number] /Age/Sex/Jbrjdl40-Mgm-77 //M /D Attending Physician Name: YORDAN JEFFRIES [id number] Patient Account:[id number] [facility] Page -1 of 1 All edits/amendments must be made on the electronic document DICTATION DATE: 01/24/21 125 MOLDED CANDLES WICKER: KELSIE 01/24/21 125 RPT#: [id number] DC DATE: STATUS: ADM IN [facility] [address] [place] [address] END OF REPORT
--- NOTE | 2021-01-24 15:00 | MORECARE ---
CASE MANAGEMENT DISCHARGE SUMMARY PATIENT: FABRICIO MONTES UNIT: [id number] ADM DATE: 01/20/21 AGE: 85 : 36 SEX: M ROOM/BED: D.2120 AUTHOR: SANTHOSH,DOC PHYSICIAN: REFERRING PHYSICIAN: MAX JEFFRIES DO DATE OF SERVICE: 01/24/21 Case Management Discharge Planning Summary CT Patient Name: FABRICIO MONTES Attending MD : MAX PETIT Medical Record: [id number] Encounter : [id number] Facility : [address] [place] [address] Admission Date : 116:34 Center Discharge Date : [address] [place] [address] Date of : DC Plan ID : [id number] Age/Sex/Martia : 85/ M/D Printed on : 01/24/21 14:58 CT DCP Review Details Anticipated D/C: Expected LOS : Case Status : INITIATED - Initial Reviewe: [id number] - Tarah Quintana Initial Review: 01/22/2021 Planned Disposi: 01 - Home or Self Care (Routine Discharge) Final Discharge: - Final Reviewer : : Final Review : Comments CT Entered Date Type Reviewer 01/24/21 14:40 CT Discharge Planning Tarah Quintana Comment CÉSAR was called into the mays by patient's son stating that they would like the referral to [facility] inpatient rehab. States he has to be in quarantine for 2 weeks at [facility], "so that's a no go." I informed them that I could not guarantee a private room in inpatient rehab and he states "I don't think that's an issue now." States he chooses [facility] over [facility]. I called [facility] and another rehab screen ordered. I called Polinavenecia Jones and she states that patient's son has called her three times with questions. She states that they have more screens than beds, so bed may not be available. She states if patient needs SNF, he will need a LETY because of anxiety and a COVID test. 01/24/21 12:29 CT Discharge Planning Tarah Quintana Comment CM met with patient and his son per request. Patient is sitting up in chair and asking to go to [facility] for therapy. Son states they have decided that his father go to [facility] instead of [facility]. He is aware that [facility] is a skilled unit and Medicare requires 1 hour of therapy a day instead of the 3 hours required at an inpatient facility. ZEE signed by the son for [facility]. I called and left a message on Polina B[employer]'s answering machine and clinical faxed. I notified Sharon that patient has decided on [facility]. 01/24/21 11:02 CT Discharge Planning Tarah Quintana Comment CÉSAR called [facility] to check on status of referral and Divya states she has sent it to Sharon and they are working on the screen. 01/24/21 1:56 CT Discharge Planning Areli Iain Comment CM was called to patient room to discuss d/c planning/ need. Patient and his son are in room and CM was asked when he was going to rehab. CM stated that I thought that you all was still deciding on what to do at discharge. Son stated we agreed to go to rehab because he can't go home alone the way he is. He has agreed to stay for the 7days now. CM called inpatient rehab to see if auth had been started. [facility] stated that no it was put on hold. CM went back and spoke with son that rehab will send off for auth from insurance and wait to see if patient approved. son asked if rooms are setup the same as in acute hospital. CM explained that patient they have double occupancy rooms and he stated that was a no go, He said the patient will never agree to go there and share a room. CÉSAR explained that [facility] has private rooms if wants CM to send referral there. Patient / son both agree for referral to be sent to [facility]. CM sent referral will await auth. 01/22/21 14:49 CT Discharge Planning Tarah Quintana Comment CM was called to the room by the patient's nurse per son's request to discuss discharge planning/needs. Patient in agreement to discuss with son in the room. Son states his dad lives alone. States "he can't go home alone like this." States he is unable to stay with his father, but he may have someone else stay with him. I discussed availability of SNF, inpatient rehab and home health. They both seem confused as to why he can't stay in acute setting for rehab. I explained the difference between acute care and rehab care and 3 hours of therapy on inpatient rehab vs one hour in a skilled facility. Patient states he is not going to a intermediate. Patient and son both seem agreeable to home health on discharge. They both seem unsure about inpatient rehab, but would like me to see if his insurance will authorize it prior to going there. I explained to them both, that even if they authorize rehab and he gains his strength and wants to go home, he can go home if he desires. Patient signs a ZEE for [facility] inpatient rehab so they may screen him and get a PA from insurance. They both seem uncertain if that is the final plan and will re evaluate tomorrow. CM will continue to follow and assist with discharge planning/needs. DCP Focus Questions & Answers DCP Screen High Risk Factors: Poor social support DCP Evaluation Patient and/or caregiver agree upon recommended No discharge plan? Patient's current cognitive status: *Oriented to person, place, situation, time and present Patient gives permission to discuss discharge Fabricio Montes Jr - son - [phone] plans with: (name, relationship and number) Patient's ability to cope with chronic illness d. No chronic illness Alternate discharge plan (if recommended plan not May need home health if not in agreement agreed upon by patient and/or caregiver): to inpatient rehab Functional screen assessment: No issues identified Physical Status: Mobility impaired Equipment needed for post hospitalization: None Is there a likelihood that the patient will Yes require additional services to return to the preadmission environment? Functional screen comments: New onset of weakness and falling Living Arrangements: Home Alone with Support Partial Dependence, assistance required for: Ambulation / Mobility Other Equipment comments: May need a walker at discharge Results of this evaluation have been discussed Patient with: Results of this evaluation have been discussed Family with: Patient with capacity for self-care or can be No cared for in same environment as prior to hospitalization? Baseline cognitive status: *Oriented to person, place, situation, time and present Would patient like to participate in any Care Not applicable Coordination programs (if applicable): Equipment in use: None Psychosocial status: Adult with physical limitations Resources / Services in place: None Problems identified by the patient regarding Lives alone with frequent falls discharge: DCP Re-evaluation Would patient like to participate in any Care Not applicable Coordination programs (if applicable): [facility] FABRICIO MONTES MR#: [id number] /Age/Sex/Btxkos94-Stm-33 //M /D Attending Physician Name: YORDAN JEFFRIES [id number] Patient Account:[id number] [facility] Page -1 of 1 All edits/amendments must be made on the electronic document DICTATION DATE: 01/24/211457 COST COORDINATOR: KELSIE 01/24/211457 RPT#: [id number] DC DATE: STATUS: ADM IN [facility] [address] [place] [address] END OF REPORT
[2021-01-24 15:07] VITALS: BP 162/86
--- NOTE | 2021-01-24 15:25 | NUR ---
PATIENT URINATED IN TOILET 7 HOURS POST CARNEY CATHETER REMOVAL.WILL CONTINUE TO MONITOR FOR URINARY OUTPUT.
--- NOTE | 2021-01-24 18:09 | NUR ---
REHAB PRESCREEN: ORDER RECEIVED, CHART REVIEWED. [facility]IN[facility]ALS BEING S[facility] FOR PREAUTHOR[facility]ATION. WE WOULD LOVE TO HAVE MR SHARP IF HE WANTS TO COME DOWN HERE TO COMPLETED HIS THERAPIES. WE WILL WAIT ON INSURANCE DETERMINATION. LANDON SMITH RN CLINICAL LIAISON, INPATIENT REHAB
[2021-01-24 18:15] VITALS: BP 176/100
--- NOTE | 2021-01-24 19:22 | NUR ---
RECIEVED ORDER FOR PRN HYDRALAZINE FOR HIGH BP.
--- NOTE | 2021-01-24 19:59 | NUR ---
PT HAS BEEN UPSET AND C/O SON DISAGREEING WITH HIM. CONT TO BE VERY UPSET. B/P 168/106. ATIVAN GIVEN PER ORDERS WILL RECHECK B/P.
--- NOTE | 2021-01-24 20:05 | NUR ---
B/P 104/66
[2021-01-25] VITALS: BP 137/71
[2021-01-25 04:00] VITALS: BP 122/63
[2021-01-25 06:00] LABS: BASOPHILS 0.1 % (0-2); EOSINOPHILS 2.1 % (0-7); HEMATOCRIT 30.2 % (42.0-54.0); HEMOGLOBIN 9.4 g/dL (13.5-17.5); IMMATURE GRANULOCYTES 0.4 % (0-5); LYMPHOCYTE ABS# 0.66 10x3/uL (1.32-3.57); LYMPHOCYTES 8.7 % (15-50); MCH 28.1 pg (26.0-34.0); MCHC 31.1 g/dL (31.0-37.0); MCV 90.4 fL (80.0-100.0); MEAN PLATELET VOLUME 9.8 fL (7.4-10.4); MONOCYTES 14.7 % (2-11); NEUTROPHIL ABS# 5.64 10x3/uL (1.78-5.38); PLATELET COUNT 381 10x3/uL (130-400); RBC 3.34 10x6/uL (4.20-6.10); RDW 13.5 % (11.5-14.5)
[2021-01-25 06:16] LABS: ALBUMIN 2.4 g/dL (3.4-5.0); ALKALINE PHOSPHATASE 59 U/L (30-120); ALT (SGPT) 42 U/L (10-68); BILIRUBIN - TOTAL 0.35 mg/dL (0.2-1.3); CALC OSMOLALITY 273 mosm/kg (275-300); CALCIUM 7.7 mg/dL (8.5-10.1); CARBON DIOXIDE 27.4 mmol/L (21.0-32.0); CHLORIDE - SERUM 100 mmol/L (98-107); GLUCOSE 98 mg/dL (74-106); MAGNESIUM - SERUM 1.7 mg/dL (1.8-2.4); POTASSIUM - SERUM 3.7 mmol/L (3.5-5.1); PROTEIN - SERUM 5.5 g/dL (6.4-8.2); SODIUM 135 mmol/L (136-145); UREA NITROGEN 25 mg/dL (7-18); eGFR NON AFRICAN AMERICAN 76 mL/min (90-120)
[2021-01-25 06:18] LABS: WBC 7.6 10x3/uL (4.8-10.8)
[2021-01-25 07:56] VITALS: BP 146/79
[2021-01-25 11:23] VITALS: BP 150/96
--- NOTE | 2021-01-25 14:20 | NUR ---
BACK IN A-FIB WITH RVR HR 154. JERAMY POZO NOTIFIED. NEW ORDERS GIVEN. WILL MONITOR.
--- NOTE | 2021-01-25 15:16 | NUR ---
GT BELT, PATIENT CGA TO STAND FROM CHAIR AND WALKED 250 FEET WITH CGA WITH WALKER.
[2021-01-25 15:28] VITALS: BP 174/98
--- NOTE | 2021-01-25 15:42 | NUR ---
OT NOTE: PTS BALANCE MUCH BETTER TODAY. PT HAS BEEN UP IN CHAIR FOR MOST OF DAY. SIT TO STAND WITH CGA; AMB WITH P.T. WITH WALKER AND CGA X 250 FT.. FEEDING WITH SET UP AND POOR APPETITE. PT UNHAPPY ABOUT LE EDEMA. EXPLAINED TO PT THAT IT WAS PROBABLY DUE TO DECREASED MOBILTIY COMPARED TO AT HOME. REQUESTED JUAN CRANDALL FROM DR DEL ANGEL. MET WITH SON REGARDING WALKER ATTATCHMENTS AND POTENTIAL DC PLANS TO REHAB TODAY. CONT TO RECOMMEND IP REHAB FOR STRENGHT, ENDURANCE, SAFETY, MOBILITY, AND ADL TRAINING. ARMINDA RANGEL, OTR/L [phone]
--- NOTE | 2021-01-25 16:12 | NUR ---
OT NOTE: PT COMPLETED BUE AROM WITH WALKER MANAGEMENT. P HAD C/O OF LE EDEMA. MD NOTIFIED. PT COMPLETED ADL MOBILITY WITH RW REQUIRED CGA-SBA. PT DID WELL. PT COMPLETED SIT TO STAND WITH CGA-SBA. PT EXHIBITED INCREASED ACTIVITY TOLERANCE. [phone] THANK YOU,GASTON CHÁVEZ
--- NOTE | 2021-01-25 18:39 | NUR ---
TELEMETRY SR. HR 84. WILL CONT. PLAN OF CARE.
[2021-01-25 19:16] VITALS: BP 136/86
[2021-01-25] MEDS ORDERED: METAMUCIL PACKE1 PKT PO (19:53)
[2021-01-26 03:38] VITALS: BP 127/68
[2021-01-26 05:02] LABS: BASOPHILS 0.1 % (0-2); EOSINOPHILS 2.5 % (0-7); HEMATOCRIT 28.8 % (42.0-54.0); HEMOGLOBIN 9.2 g/dL (13.5-17.5); IMMATURE GRANULOCYTES 0.4 % (0-5); LYMPHOCYTE ABS# 0.77 10x3/uL (1.32-3.57); LYMPHOCYTES 10.7 % (15-50); MCH 28.7 pg (26.0-34.0); MCHC 31.9 g/dL (31.0-37.0); MCV 89.7 fL (80.0-100.0); MEAN PLATELET VOLUME 9.6 fL (7.4-10.4); MONOCYTES 12.8 % (2-11); NEUTROPHIL ABS# 5.26 10x3/uL (1.78-5.38); NEUTROPHILS 73.5 % (40-80); PLATELET COUNT 344 10x3/uL (130-400); RBC 3.21 10x6/uL (4.20-6.10); RDW 13.5 % (11.5-14.5); WBC 7.2 10x3/uL (4.8-10.8)
[2021-01-26 05:24] LABS: ALBUMIN 2.3 g/dL (3.4-5.0); ALKALINE PHOSPHATASE 61 U/L (30-120); ALT (SGPT) 42 U/L (10-68); BILIRUBIN - TOTAL 0.51 mg/dL (0.2-1.3); CALC OSMOLALITY 264 mosm/kg (275-300); CALCIUM 7.6 mg/dL (8.5-10.1); CARBON DIOXIDE 24.9 mmol/L (21.0-32.0); CHLORIDE - SERUM 98 mmol/L (98-107); CREATININE - SERUM 0.9 mg/dL (0.6-1.3); GLUCOSE 85 mg/dL (74-106); POTASSIUM - SERUM 3.5 mmol/L (3.5-5.1); PROTEIN - SERUM 5.3 g/dL (6.4-8.2); SODIUM 131 mmol/L (136-145); UREA NITROGEN 22 mg/dL (7-18); eGFR NON AFRICAN AMERICAN 85 mL/min (90-120)
[2021-01-26 07:47] VITALS: BP 144/66
--- NOTE | 2021-01-26 08:00 | NUR ---
PT RECEIVED AWAKE AND ALERT SITTING UP IN CHAIR. WAITING FOR BREAKFAST.
[2021-01-26 11:24] VITALS: BP 174/90
--- NOTE | 2021-01-26 13:20 | NUR ---
PATIENT ABLE TO GET UP TO BEDSIDE BY HIMSELF. PATIENT STOOD WITH MIN ASST AND WALKED IN [place] WITH WALKER WITH CGA FOR 250 FEET.
--- NOTE | 2021-01-26 14:12 | NUR ---
PTS INSURANCE HAS DENIED INPATIENT REHAB. THEY STATED THE PATIENT DID NOT REQUIRE SUPERVISION OF A PHYSICIAN 3-5 DAYS OF THE WEEK, NOR DID HE NEED 3 HOURS OF INTENSIVE THERAPY A DAY. THEY FELT THAT HE WOULD BE APPROPRIATE FOR SNF OR A P2P COULD BE DONE BY [phone], OPTION #5. Latisha STATED THAT THIS NEEDED TO BE DONE BY FRIDAY, 01/29 @ 0900. I HAVE PASSED THIS INFORMATION ON TO VAL STERLING RN CM.
--- NOTE | 2021-01-26 15:19 | NUR ---
OT NOTE: PT COMPLETED BED MOBILITY WITH CGA-MIN A. PT COMPLETED ADL MOB WITH RW REQUIRED CGA. PT COMPLETED BUE AROM WITH FUNCTIONAL WALKER MANAGEMENT. PT C/O OF NECK PAIN. FELDMAN NOTIFIED NURSING. [phone] THANK YOU,GASTON CHÁVEZ
[2021-01-26 16:09] VITALS: BP 149/100
--- NOTE | 2021-01-26 18:28 | MORECARE ---
CASE MANAGEMENT DISCHARGE SUMMARY PATIENT: FABRICIO SHARP UNIT: [id number] ADM DATE: 01/20/21 AGE: 85 : 36 SEX: M ROOM/BED: D.2120 AUTHOR: SANTHOSH,DOC PHYSICIAN: REFERRING PHYSICIAN: MAX JEFFRIES DO DATE OF SERVICE: 01/26/21 Case Management Discharge Planning Summary CT Patient Name: FABRICIO SHARP Attending MD : MAX PETIT Medical Record: [id number] Encounter : [id number] Facility : [address] [place] [address] Admission Date : 116:34 Center Discharge Date : [address] [place] [address] Date of : DC Plan ID : [id number] Age/Sex/Martia : 85/ M/D Printed on : 01/26/21 18:27 CT DCP Review Details Anticipated D/C: Expected LOS : Case Status : INITIATED - Initial Reviewe: [id number] - Tarah Quintana Initial Review: 01/22/2021 Planned Disposi: 01 - Home or Self Care (Routine Discharge) Final Discharge: - Final Reviewer : : Final Review : Comments CT Entered Date Type Reviewer 01/26/21 18:09 CT Discharge Planning Areli Timmons Comment CM received notice that [facility] had denied inpatient rehab. CM notified Aminta of denial and family would like P2P. Aminta completed P2P and denial was upheld. CM notified son Farhad and he is planning to call insurance company on his father's behalf. Farhad came back later and gave CM prior auth appeal number [id number]. He stated that he spoke with them about all options available including SNF and HHS. CM will continue to follow and assist as needed with discharge planning / needs. 01/24/21 14:40 CT Discharge Planning Tarah Quintana Comment CM was called into the mays by patient's son stating that they would like the referral to [facility] inpatient rehab. States he has to be in quarantine for 2 weeks at [facility], "so that's a no go." I informed them that I could not guarantee a private room in inpatient rehab and he states "I don't think that's an issue now." States he chooses [facility] over [facility]. I called [facility] and another rehab screen ordered. I called Polina Jones and she states that patient's son has called her three times with questions. She states that they have more screens than beds, so bed may not be available. She states if patient needs SNF, he will need a LETY because of anxiety and a COVID test. 01/24/21 12:29 CT Discharge Planning Tarah Quintana Comment CÉSAR met with patient and his son per request. Patient is sitting up in chair and asking to go to [facility] for therapy. Son states they have decided that his father go to [facility] instead of [facility]. He is aware that [facility] is a skilled unit and Medicare requires 1 hour of therapy a day instead of the 3 hours required at an inpatient facility. ZEE signed by the son for [facility]. I called and left a message on Polina Jones's answering machine and clinical faxed. I notified Sharon that patient has decided on [facility]. 01/24/21 11:02 CT Discharge Planning Tarah Quintana Comment CÉSAR called [facility] to check on status of referral and Divya states she has sent it to Sharon and they are working on the screen. 01/24/21 1:56 CT Discharge Planning Areli Timmons Comment CM was called to patient room to discuss d/c planning/ need. Patient and his son are in room and CM was asked when he was going to rehab. CM stated that I thought that you all was still deciding on what to do at discharge. Son stated we agreed to go to rehab because he can't go home alone the way he is. He has agreed to stay for the 7days now. CM called inpatient rehab to see if auth had been started. [facility] stated that no it was put on hold. CÉSAR went back and spoke with son that rehab will send off for auth from insurance and wait to see if patient approved. son asked if rooms are setup the same as in acute hospital. CÉSAR explained that patient they have double occupancy rooms and he stated that was a no go, He said the patient will never agree to go there and share a room. CÉSAR explained that [facility] has private rooms if wants CM to send referral there. Patient / son both agree for referral to be sent to [facility]. CM sent referral will await auth. 01/22/21 14:49 CT Discharge Planning Tarah Quintana Comment CM was called to the room by the patient's nurse per son's request to discuss discharge planning/needs. Patient in agreement to discuss with son in the room. Son states his dad lives alone. States "he can't go home alone like this." States he is unable to stay with his father, but he may have someone else stay with him. I discussed availability of SNF, inpatient rehab and home health. They both seem confused as to why he can't stay in acute setting for rehab. I explained the difference between acute care and rehab care and 3 hours of therapy on inpatient rehab vs one hour in a skilled facility. Patient states he is not going to a care home. Patient and son both seem agreeable to home health on discharge. They both seem unsure about inpatient rehab, but would like me to see if his insurance will authorize it prior to going there. I explained to them both, that even if they authorize rehab and he gains his strength and wants to go home, he can go home if he desires. Patient signs a ZEE for [facility] inpatient rehab so they may screen him and get a PA from insurance. They both seem uncertain if that is the final plan and will re evaluate tomorrow. CM will continue to follow and assist with discharge planning/needs. DCP Focus Questions & Answers DCP Screen High Risk Factors: Poor social support DCP Evaluation Patient and/or caregiver agree upon recommended No discharge plan? Patient's current cognitive status: *Oriented to person, place, situation, time and present Patient gives permission to discuss discharge Fabricio gallagher - [phone] plans with: (name, relationship and number) Patient's ability to cope with chronic illness d. No chronic illness Alternate discharge plan (if recommended plan not May need home health if not in agreement agreed upon by patient and/or caregiver): to inpatient rehab Functional screen assessment: No issues identified Physical Status: Mobility impaired Equipment needed for post hospitalization: None Is there a likelihood that the patient will Yes require additional services to return to the preadmission environment? Functional screen comments: New onset of weakness and falling Living Arrangements: Home Alone with Support Partial Dependence, assistance required for: Ambulation / Mobility Other Equipment comments: May need a walker at discharge Results of this evaluation have been discussed Patient with: Results of this evaluation have been discussed Family with: Patient with capacity for self-care or can be No cared for in same environment as prior to hospitalization? Baseline cognitive status: *Oriented to person, place, situation, time and present Would patient like to participate in any Care Not applicable Coordination programs (if applicable): Equipment in use: None Psychosocial status: Adult with physical limitations Resources / Services in place: None Problems identified by the patient regarding Lives alone with frequent falls discharge: DCP Re-evaluation Would patient like to participate in any Care Not applicable Coordination programs (if applicable): [facility] FABRICIO SHARP MR#: [id number] /Age/Sex/[id number]-[id number]-29 //M /D Attending Physician Name: YORDAN JEFFRIES [id number] Patient Account:[id number] [facility] Page -1 of 1 All edits/amendments must be made on the electronic document DICTATION DATE: 01/26/211826 CELL TOWER CLIMBER: KELSIE 01/26/211826 RPT#: [id number] DC DATE: STATUS: ADM IN [facility] [address] [place] [address] END OF REPORT
--- NOTE | 2021-01-26 20:00 | NUR ---
INITIAL ROUNDS AND ASSESSMENT COMPLETED. ALERT/ORIENTED. GETS UP AND DOWN INDEPENDENTLY TO BATHROOM AND TO SINK TO DO ORAL CARE. PT REQUESTING BED ALARM BE TURNED OFF, HE IS MORE THAN CAPABLE OF BEING UP AND ABOUT SAFELY. NONLABORED RESPIRATIONS ON ROOM AIR. SALINE LOCK TO RFA. CALL LIGHT IN REACH.
[2021-01-26] MEDS ORDERED: AMBIEN10 MG (20:01)
--- NOTE | 2021-01-26 21:11 | NUR ---
BEDTIME MEDS GIVEN.
[2021-01-26 22:50] VITALS: BP 127/76
[2021-01-27 01:04] VITALS: BP 145/73
--- NOTE | 2021-01-27 02:20 | NUR ---
EYES CLOSED. RESPS EVEN/NONLABORED. NAD. CALL LIGHT IN REACH.
[2021-01-27 05:23] LABS: BASOPHILS 0.1 % (0-2); EOSINOPHILS 1.8 % (0-7); HEMATOCRIT 29.7 % (42.0-54.0); HEMOGLOBIN 9.6 g/dL (13.5-17.5); IMMATURE GRANULOCYTES 0.6 % (0-5); LYMPHOCYTE ABS# 0.73 10x3/uL (1.32-3.57); LYMPHOCYTES 10.3 % (15-50); MCH 28.8 pg (26.0-34.0); MCHC 32.3 g/dL (31.0-37.0); MCV 89.2 fL (80.0-100.0); MEAN PLATELET VOLUME 9.6 fL (7.4-10.4); MONOCYTES 13.3 % (2-11); NEUTROPHIL ABS# 5.26 10x3/uL (1.78-5.38); NEUTROPHILS 73.9 % (40-80); PLATELET COUNT 335 10x3/uL (130-400); RBC 3.33 10x6/uL (4.20-6.10); RDW 13.5 % (11.5-14.5); WBC 7.1 10x3/uL (4.8-10.8)
[2021-01-27 05:42] LABS: ALBUMIN 2.4 g/dL (3.4-5.0); ALKALINE PHOSPHATASE 65 U/L (30-120); ALT (SGPT) 36 U/L (10-68); BILIRUBIN - TOTAL 0.52 mg/dL (0.2-1.3); CALC OSMOLALITY 261 mosm/kg (275-300); CARBON DIOXIDE 26.9 mmol/L (21.0-32.0); CHLORIDE - SERUM 97 mmol/L (98-107); GLUCOSE 86 mg/dL (74-106); POTASSIUM - SERUM 3.5 mmol/L (3.5-5.1); PROTEIN - SERUM 5.4 g/dL (6.4-8.2); SODIUM 130 mmol/L (136-145); UREA NITROGEN 19 mg/dL (7-18); eGFR NON AFRICAN AMERICAN 76 mL/min (90-120)
--- NOTE | 2021-01-27 07:30 | NUR ---
PT RECEIVED AWAKE AND ALERT SITTING UP IN BED. ASKING FOR MORNING MEDS SINCE BP UP A LITTLE. MEDS GIVEN AND BREAKFAST HERE NOW.
[2021-01-27 07:49] VITALS: BP 167/84
[2021-01-27 11:50] VITALS: BP 114/59
--- NOTE | 2021-01-27 14:10 | NUR ---
FAMILY ASKING ABOUT HAVING BRONCH WHICH DR DEL ANGEL DISCUSSED ON ROUNDS. DR DEL ANGEL CALLED AND ORDERS TO HOLD ELIQUIS AND START LOVENOX 1MG/KG BID GIVEN.
[2021-01-27 15:39] VITALS: BP 139/78
--- NOTE | 2021-01-27 20:06 | NUR ---
INITIAL ROUNDS AND ASSESSMENT COMPLETED. PT ALERT/ORIENTED. UP AND ABOUT IN HIS ROOM WITH A WALKER. DOES NOT WANT STAFF ASSISTANCE UNLESS HE SPECIFIES THEY NEED TO HELP HIM.IV TO RFA SALINE LOCKED. PT ADAMENT THAT IVF ARE SUPPOSED TO BE RUNNING. NO ORDERS FOR CONTINOUS FLUIDS. PT ALSO SAYING HE IS WAITING FOR HIS LAST BREATHING TREATMENT, WHICH IS DOCUMENTED TO HAVE BEEN GIVEN AROUND 1830. RT NOW IN ROOM REVIEWING BREATHING TREATMENT AND LAST GIVEN. NOW PATIENT RECOLLECTS GETTING IT. PT VERY TIME ORIENTED AND DISPLAYS A GREAT DISLIKE FOR THINGS NOT BEING DONE AT THE TIMES HE FEELS THEY SHOULD BE DONE. WILL GATHER BEDTIME MEDS AND PROVIDE IN HOPES OF SETTLING PATIENT DOWN FOR SLEEP.
[2021-01-27 20:30] VITALS: BP 115/60
--- NOTE | 2021-01-27 23:07 | NUR ---
BEDTIME MEDS GIVEN. POTASSIUM 20MEQ ORAL GIVEN FOR 3.5 LEVEL ON AM LABS.
--- NOTE | 2021-01-28 02:02 | NUR ---
CALLED TO ROOM BY PATIENT. STATES HE HAS BEEN UNABLE TO SLEEP EVER SINCE HE RECIEVED TH LOVENOX INJECTION (1ST DOSE GIVEN @ BEDTIME). PT UPSET THAT HIS ABDOMEN HURTS AND DOES NOT UNDERSTAND WHY HE MUST TAKE IT. REVIEWED MD NOTES AND INSTRUCTED PT ON THE LOVENOX BEING A TEMPORARY MEDICATION WHILE HE IS ON HOLD FOR HIS ELIQUIS. PT ASKING FOR ATIVAN TO HELP HIM TRY TO SLEEP. MEDICATED WITH ATIVAN 0.25MG IV ADMINISTERED AT THIS TIME. IF PT IS ASLEEP ON NEXT VITAL SIGNS, HE ASKS TO NOT BE AWAKENED. CALL LIGHT IN REACH.
[2021-01-28 04:30] VITALS: BP 124/56
--- NOTE | 2021-01-28 05:05 | NUR ---
AM CXR DONE. AM MED GIVEN.
[2021-01-28 06:41] LABS: BASOPHILS 0.2 % (0-2); EOSINOPHILS 1.1 % (0-7); HEMATOCRIT 28.3 % (42.0-54.0); HEMOGLOBIN 9.2 g/dL (13.5-17.5); IMMATURE GRANULOCYTES 0.3 % (0-5); LYMPHOCYTE ABS# 0.95 10x3/uL (1.32-3.57); LYMPHOCYTES 14.4 % (15-50); MCH 28.7 pg (26.0-34.0); MCHC 32.5 g/dL (31.0-37.0); MCV 88.2 fL (80.0-100.0); MEAN PLATELET VOLUME 10.3 fL (7.4-10.4); MONOCYTES 13.9 % (2-11); NEUTROPHIL ABS# 4.64 10x3/uL (1.78-5.38); NEUTROPHILS 70.1 % (40-80); PLATELET COUNT 350 10x3/uL (130-400); RBC 3.21 10x6/uL (4.20-6.10); RDW 13.6 % (11.5-14.5); WBC 6.6 10x3/uL (4.8-10.8)
[2021-01-28 06:59] LABS: ALBUMIN 2.4 g/dL (3.4-5.0); ALKALINE PHOSPHATASE 64 U/L (30-120); ALT (SGPT) 33 U/L (10-68); BILIRUBIN - TOTAL 0.42 mg/dL (0.2-1.3); CALC OSMOLALITY 263 mosm/kg (275-300); CALCIUM 7.8 mg/dL (8.5-10.1); CARBON DIOXIDE 27.6 mmol/L (21.0-32.0); CHLORIDE - SERUM 97 mmol/L (98-107); GLUCOSE 84 mg/dL (74-106); POTASSIUM - SERUM 3.4 mmol/L (3.5-5.1); PROTEIN - SERUM 5.2 g/dL (6.4-8.2); SODIUM 129 mmol/L (136-145); eGFR NON AFRICAN AMERICAN 76 mL/min (90-120)
[2021-01-28 07:03] LABS: UREA NITROGEN 28 mg/dL (7-18)
--- NOTE | 2021-01-28 07:20 | NUR ---
RECIEVE REPORT. RESTING IN BED WITH EYES CLOSED. SINUS RYTHM ON TELEMETRY. NO SIGNS OF DISTRESS. CONTINUE PLAN OF CARE AND SAFETY PRECAUTIONS.
[2021-01-28 08:35] VITALS: BP 143/77
[2021-01-28 12:10] VITALS: BP 133/75
--- NOTE | 2021-01-28 15:16 | NUR ---
ALERT AND ORIENTED X4. SHOWER AND LINEN CHANGE COMPLETE. SON AT BEDSIDE. AMBULATES TO CHAIR. DENIES ANY NEEDS. SINUS DUSTY 58 ON TELEMETRY. CONTINUE PLAN OF CARE AND SAFETY PRECAUTIONS.
[2021-01-28 16:16] VITALS: BP 114/66
--- NOTE | 2021-01-28 19:45 | NUR ---
INITIAL ROUNDS AND ASSESSMENT COMPLETED. PT HAS VISITOR AT BEDSIDE. NO DISTRESS. NO NEEDS AT THIS TIME.
--- NOTE | 2021-01-28 22:00 | NUR ---
BEDTIME MEDS GIVEN. SR PER TELEMETRY. NONLABORED RESPIRATIONS ON ROOM AIR. ARGUMENTATIVE WHEN TOLD HE WILL NEED TO BE NPO AFTER MIDNIGHT FOR POSSIBLE BRONCHOSCOPY IN AM. PT STATES IT WILL BE FRIDAY OR FRIDAY. ALL MD DOCUMENATION INDICATES FRIDAY/POSSIBLY FRIDAY. PT ALSO C/O THE LOVENOX INJECTION AND HAVING HIS ELIQUIS ON HOLD. RE-INTSTRUCTED ON THE LOVENOX BEING NEEDED WHILE HIS ELIQUIS IS ON HOLD. PT SHORT TEMPERED AND TOLD NURSE TO JUST GIVEN HIM ATIVAN WITH BEDTIME MEDS SO THAT HE CAN AT LEAST SLEEP.
[2021-01-28 22:30] VITALS: BP 104/47
--- NOTE | 2021-01-29 02:28 | NUR ---
RESTING WITH NO DISTRESS. SR PER TELEMETRY. CALL LIGHT IN REACH.
[2021-01-29 04:00] VITALS: BP 111/50
--- NOTE | 2021-01-29 04:48 | NUR ---
PT RESTING WITH EYES CLOSED. RESP EVEN AND REGULAR. SR UP X2, CALL LIGHT WITHIN REACH.
[2021-01-29 06:09] LABS: BASOPHILS 0.2 % (0-2); EOSINOPHILS 1.4 % (0-7); HEMATOCRIT 29.6 % (42.0-54.0); HEMOGLOBIN 9.7 g/dL (13.5-17.5); IMMATURE GRANULOCYTES 0.3 % (0-5); LYMPHOCYTE ABS# 0.99 10x3/uL (1.32-3.57); LYMPHOCYTES 14.9 % (15-50); MCHC 32.8 g/dL (31.0-37.0); MCV 88.6 fL (80.0-100.0); MEAN PLATELET VOLUME 10.5 fL (7.4-10.4); MONOCYTES 16.7 % (2-11); NEUTROPHIL ABS# 4.41 10x3/uL (1.78-5.38); NEUTROPHILS 66.5 % (40-80); PLATELET COUNT 362 10x3/uL (130-400); RBC 3.34 10x6/uL (4.20-6.10); RDW 13.8 % (11.5-14.5); WBC 6.6 10x3/uL (4.8-10.8)
[2021-01-29 06:30] LABS: ALBUMIN 2.6 g/dL (3.4-5.0); ANION GAP 8.1 mmol/L (8-16); BILIRUBIN - TOTAL 0.37 mg/dL (0.2-1.3); CALCIUM 8.1 mg/dL (8.5-10.1); CARBON DIOXIDE 28.4 mmol/L (21.0-32.0); CREATININE - SERUM 1.2 mg/dL (0.6-1.3); POTASSIUM - SERUM 3.5 mmol/L (3.5-5.1); PROTEIN - SERUM 5.6 g/dL (6.4-8.2)
--- NOTE | 2021-01-29 07:20 | NUR ---
RECIEVE REPORT. RESTING IN BED. ALERT AND ORIENTED X4. ASKING ABOUT PLAN OF CARE. EXPLAIN WILL TALK TO DOCTOR. SINUS RYTHM 62 WITH PVCs ON TELEMETRY. CONTINUE PLAN OF CARE AND SAFETY PRECAUTIONS.
[2021-01-29 08:58] VITALS: BP 157/71
--- NOTE | 2021-01-29 10:33 | NUR ---
UP AMBULATING IN [place] WITH WALKER ACCOMPANIED BY PHYSICAL THERAPY.
[2021-01-29 15:53] VITALS: BP 129/58
--- NOTE | 2021-01-29 18:07 | NUR ---
ALERT AND ORIENTED X4. SITTING UP IN CHAIR. CONSENTS FOR BRONCHOSCOPY SIGNED ON CHART. FAMILY AT BEDSIDE. DENIES ANY NEEDS. CONTINUE PLAN OF CARE AND SAFETY PRECAUTIONS.
--- NOTE | 2021-01-29 19:44 | NUR ---
REPORT RECEIVED, WILL CONT POC. PT UP IN BED, A&O. NO S/S OF DISTRESS OBSERVED. RR EVEN & UNLABORED ON RA. BED LOCKED AND LOWERED, CL IN REACH. ASSESSMENT COMPLETED AT THIS TIME. WILL CONT TO MONITOR.
[2021-01-29 20:00] VITALS: BP 134/69
--- NOTE | 2021-01-30 03:35 | MORECARE ---
CASE MANAGEMENT DISCHARGE SUMMARY PATIENT: FABRICIO MONTES UNIT: [id number] ADM DATE: 01/20/21 AGE: 85 : 36 SEX: M ROOM/BED: D.2120 AUTHOR: SANTHOSH,DOC PHYSICIAN: REFERRING PHYSICIAN: MAX JEFFRIES DO DATE OF SERVICE: 01/30/21 Case Management Discharge Planning Summary CT Patient Name: FABRICIO MONTES Attending MD : MAX PETIT Medical Record: [id number] Encounter : [id number] Facility : [address] [place] [address] Admission Date : 116:34 Center Discharge Date : [address] [place] [address] Date of : DC Plan ID : [id number] Age/Sex/Martia : 85/ M/D Printed on : 01/30/21 3:34 CT DCP Review Details Anticipated D/C: Expected LOS : Case Status : INITIATED - Initial Reviewe: [id number] - Tarah Quintana Initial Review: 01/22/2021 Planned Disposi: 01 - Home or Self Care (Routine Discharge) Final Discharge: - Final Reviewer : : Final Review : Comments CT Entered Date Type Reviewer 01/30/21 3:23 CT Discharge Planning Areli Timmons Comment CM was notified by patient's son Farhad that [facility] told him that denial to inpatient rehab has been overturned. CM spoke with Kusum with rehab to see if she would follow up on this. CM will continue to follow and assist as needed with discharge planning / needs. 01/26/21 18:09 CT Discharge Planning Areli Timmons Comment CM received notice that [facility] had denied inpatient rehab. CM notified Aminta of denial and family would like P2P. Aminta completed P2P and denial was upheld. CM notified son Farhad and he is planning to call insurance company on his father's behalf. Farhad came back later and gave CM prior auth appeal number [id number]. He stated that he spoke with them about all options available including SNF and HHS. CM will continue to follow and assist as needed with discharge planning / needs. 01/24/21 14:40 CT Discharge Planning Tarah Quintana Comment CM was called into the mays by patient's son stating that they would like the referral to [facility] inpatient rehab. States he has to be in quarantine for 2 weeks at [facility], "so that's a no go." I informed them that I could not guarantee a private room in inpatient rehab and he states "I don't think that's an issue now." States he chooses [facility] over [facility]. I called Kusum and another rehab screen ordered. I called Polina Jones and she states that patient's son has called her three times with questions. She states that they have more screens than beds, so bed may not be available. She states if patient needs SNF, he will need a LETY because of anxiety and a COVID test. 01/24/21 12:29 CT Discharge Planning Tarah Quintana Comment CÉSAR met with patient and his son per request. Patient is sitting up in chair and asking to go to [facility] for therapy. Son states they have decided that his father go to [facility] instead of [facility]. He is aware that [facility] is a skilled unit and Medicare requires 1 hour of therapy a day instead of the 3 hours required at an inpatient facility. ZEE signed by the son for [facility]. I called and left a message on Polina Jones's answering machine and clinical faxed. I notified Sharon that patient has decided on [facility]. 01/24/21 11:02 CT Discharge Planning Tarah Quintana Comment CÉSAR called [facility] to check on status of referral and Divya states she has sent it to Sharon and they are working on the screen. 01/24/21 1:56 CT Discharge Planning Areli Timmons Comment CM was called to patient room to discuss d/c planning/ need. Patient and his son are in room and CM was asked when he was going to rehab. CÉSAR stated that I thought that you all was still deciding on what to do at discharge. Son stated we agreed to go to rehab because he can't go home alone the way he is. He has agreed to stay for the 7days now. CÉSAR called inpatient rehab to see if auth had been started. Kusum stated that no it was put on hold. CÉSAR went back and spoke with son that rehab will send off for auth from insurance and wait to see if patient approved. son asked if rooms are setup the same as in acute hospital. CM explained that patient they have double occupancy rooms and he stated that was a no go, He said the patient will never agree to go there and share a room. CM explained that [facility] has private rooms if wants CM to send referral there. Patient / son both agree for referral to be sent to [facility]. CM sent referral will await auth. 01/22/21 14:49 CT Discharge Planning Tarah Quintana Comment CM was called to the room by the patient's nurse per son's request to discuss discharge planning/needs. Patient in agreement to discuss with son in the room. Son states his dad lives alone. States "he can't go home alone like this." States he is unable to stay with his father, but he may have someone else stay with him. I discussed availability of SNF, inpatient rehab and home health. They both seem confused as to why he can't stay in acute setting for rehab. I explained the difference between acute care and rehab care and 3 hours of therapy on inpatient rehab vs one hour in a skilled facility. Patient states he is not going to a penitentiary. Patient and son both seem agreeable to home health on discharge. They both seem unsure about inpatient rehab, but would like me to see if his insurance will authorize it prior to going there. I explained to them both, that even if they authorize rehab and he gains his strength and wants to go home, he can go home if he desires. Patient signs a ZEE for [facility] inpatient rehab so they may screen him and get a PA from insurance. They both seem uncertain if that is the final plan and will re evaluate tomorrow. CM will continue to follow and assist with discharge planning/needs. DCP Focus Questions & Answers DCP Screen High Risk Factors: Poor social support DCP Evaluation Patient and/or caregiver agree upon recommended No discharge plan? Patient's current cognitive status: *Oriented to person, place, situation, time and present Patient gives permission to discuss discharge Fabricio Montes Jr - elliott - [phone] plans with: (name, relationship and number) Patient's ability to cope with chronic illness d. No chronic illness Alternate discharge plan (if recommended plan not May need home health if not in agreement agreed upon by patient and/or caregiver): to inpatient rehab Functional screen assessment: No issues identified Physical Status: Mobility impaired Equipment needed for post hospitalization: None Is there a likelihood that the patient will Yes require additional services to return to the preadmission environment? Functional screen comments: New onset of weakness and falling Living Arrangements: Home Alone with Support Partial Dependence, assistance required for: Ambulation / Mobility Other Equipment comments: May need a walker at discharge Results of this evaluation have been discussed Patient with: Results of this evaluation have been discussed Family with: Patient with capacity for self-care or can be No cared for in same environment as prior to hospitalization? Baseline cognitive status: *Oriented to person, place, situation, time and present Would patient like to participate in any Care Not applicable Coordination programs (if applicable): Equipment in use: None Psychosocial status: Adult with physical limitations Resources / Services in place: None Problems identified by the patient regarding Lives alone with frequent falls discharge: DCP Re-evaluation Would patient like to participate in any Care Not applicable Coordination programs (if applicable): [facility] FABRICIO MONTES MR#: [id number] /Age/Sex/[id number] //M /D Attending Physician Name: YORDAN JEFFRIES [id number] Patient Account:[id number] [facility] Page -1 of 1 All edits/amendments must be made on the electronic document DICTATION DATE: 01/30/21333 BLACKTOP SPREADER: KELSIE 01/30/21333 RPT#: [id number] DC DATE: STATUS: ADM IN [facility] [address] [place] [address] END OF REPORT
[2021-01-30 04:00] VITALS: BP 147/63
[2021-01-30 06:34] LABS: BASOPHILS 0.5 % (0-2); EOSINOPHILS 1.1 % (0-7); HEMATOCRIT 30.4 % (42.0-54.0); IMMATURE GRANULOCYTES 0.3 % (0-5); LYMPHOCYTE ABS# 0.85 10x3/uL (1.32-3.57); LYMPHOCYTES 13.5 % (15-50); MCH 29.1 pg (26.0-34.0); MCHC 32.9 g/dL (31.0-37.0); MCV 88.4 fL (80.0-100.0); MEAN PLATELET VOLUME 10.4 fL (7.4-10.4); MONOCYTES 16.6 % (2-11); NEUTROPHIL ABS# 4.27 10x3/uL (1.78-5.38); PLATELET COUNT 373 10x3/uL (130-400); RBC 3.44 10x6/uL (4.20-6.10); RDW 13.8 % (11.5-14.5); WBC 6.3 10x3/uL (4.8-10.8)
[2021-01-30 06:46] LABS: ALBUMIN 2.7 g/dL (3.4-5.0); ALKALINE PHOSPHATASE 77 U/L (30-120); ALT (SGPT) 38 U/L (10-68); BILIRUBIN - TOTAL 0.47 mg/dL (0.2-1.3); CALC OSMOLALITY 262 mosm/kg (275-300); CALCIUM 8.2 mg/dL (8.5-10.1); CARBON DIOXIDE 27.7 mmol/L (21.0-32.0); CHLORIDE - SERUM 96 mmol/L (98-107); GLUCOSE 95 mg/dL (74-106); POTASSIUM - SERUM 3.5 mmol/L (3.5-5.1); PROTEIN - SERUM 5.8 g/dL (6.4-8.2); SODIUM 130 mmol/L (136-145); eGFR NON AFRICAN AMERICAN 76 mL/min (90-120)
[2021-01-30 06:47] LABS: UREA NITROGEN 19 mg/dL (7-18)
--- NOTE | 2021-01-30 07:20 | NUR ---
RECIEVE REPORT. RESTING IN BED WITH EYES CLOSED. NO SIGNS OF DISTRESS. SINUS RYTHM 80 ON TELEMETRY. CONTINUE PLAN OF CARE AND SAFETY PRECAUTIONS.
[2021-01-30 07:28] VITALS: BP 147/63
--- NOTE | 2021-01-30 08:51 | NUR ---
01/29/21 @ 9488, CALLED AND SPOKE WITH JULIEN ( ) TO VERIFY THE SON'S CLAIM THAT THE DENIAL FOR IPR HAD BEEN OVERTURNED. AT THIS TIME I WAS TOLD THAT THE COMPUTER IS SHOWING HIS CASE IS STILL PENDING MEMBER APPEAL. HE STATED THAT IT COULD BE SEVERAL HOURS AFTER THE APPEAL IS COMPLETED FOR THE CHANGE TO SHOW IN THE SYSTEM. HE STATED IF WE HAVE NOT HEARD ANYTHING BY THE MORNING TO CALL BACK. 01/30/21 @ 3165, I CALLED BACK AND SPOKE WITH VIOLETTE. SHE STATED THAT THE SYSTEM IS SHOWING THE DENIAL IS STILL PENDING MEMBER APPEAL. SHE IS UNSURE OF THE TIME FRAME THEY SYSTEM WOULD BE UPDATED, BUT HAS STATED SHE WOULD MAKE A NOTE TO CALL ME IF THE DENIAL IS OVERTURNED DURING HER SHIFT. I WILL CONTINUE TO FOLLOW WITH THE INSURANCE COMPANY IN REGARDS TO THE MEMBER APPEAL. LANDON SMITH RN CLINICAL LIAISON, INPATIENT REHAB.
[2021-01-30 12:23] LABS: INR 1.21 (0.85-1.17); PROTIME 14.2 SECONDS (11.6-15.0)
[2021-01-30 14:16] VITALS: BP 120/73
--- NOTE | 2021-01-30 14:20 | NUR ---
ARRIVE BACK TO ROOM VIA BED FROM PROCEDURE. ALERT AND ORIENTED X4. SITTING UP IN BED. BP-120/73, HR-56 SINUS DUSTY, 02-92% RA. DENIES ANY NEEDS. CONTINUE PLAN OF CARE AND SAFETY PRECAUTIONS.
[2021-01-30 15:00] VITALS: BP 140/62
--- NOTE | 2021-01-30 15:39 | NUR ---
RE: FAMILY APPEAL @3955, I PLACED A CALL TO THE INSURANCE COMPANY ([employer], COVERING REFERRALS FOR [facility] FOR [facility]) ONCE MORE. I SPOKE WITH RICHARD AND EXPLAINED TO HIM THAT THE PATIENTS SON SAID THE DENIAL WAS OVERTURNED WITH THE MEMBER APPEAL THAT WAS DONE. HE STATED THAT HIS SYSTEM IS SHOWING THAT THE APPEAL IS STILL PENDING. I WILL FOLLOW UP AGAIN IN THE MORNING. @7821, I PLACED A CALL TO [facility] ([phone]) TO SEE IF THEY HAD ANY INFORMATION. JOHN HAS DIRECTED ME TO CALL [employer] AT [phone], I HAVE EXPLAINED THAT WAS ALREADY DONE. AGAIN I WILL FOLLOW UP WITH [employer] IN THE MORNING. I HAVE CALLED AND EXPLAINED ALL THIS TO MIR MAYORGA CM. WE WILL CONTINUE TO FOLLOW. LANDON SMITH RN CLINICAL LIAISON, INPATIENT REHAB.
--- NOTE | 2021-01-30 18:56 | MORECARE ---
CASE MANAGEMENT DISCHARGE SUMMARY PATIENT: FABRICIO SHARP UNIT: [id number] ADM DATE: 01/20/21 AGE: 85 : 36 SEX: M ROOM/BED: D.2120 AUTHOR: SANTHOSH,DOC PHYSICIAN: REFERRING PHYSICIAN: MAX JEFFRIES DO DATE OF SERVICE: 01/30/21 Case Management Discharge Planning Summary COMMENTS ENTERED DATE: 01/30/21 18:45 CT COMMENT TYPE: Discharge Planning REVIEWER: Anthony Rivero CM Notified by [facility] that a member appeal is pending. INPT REHAB will follow up for clarification of family's claim that denial was overturned. Currently Member Appeal is pending. CM team will follow up with family ENTERED DATE: 01/30/21 3:23 CT COMMENT TYPE: Discharge Planning REVIEWER: Areli Timmons CM was notified by patient's son Farhad that [facility] told him that denial to inpatient rehab has been overturned. CM spoke with Kusum with rehab to see if she would follow up on this. CM will continue to follow and assist as needed with discharge planning / needs. ENTERED DATE: 01/26/21 18:09 CT COMMENT TYPE: Discharge Planning REVIEWER: Areli Timmons CM received notice that [facility] had denied inpatient rehab. CM notified Aminta of denial and family would like P2P. Aminta completed P2P and denial was upheld. CM notified son Farhad and he is planning to call insurance [employer] on his father's behalf. Farhad came back later and gave CM prior auth appeal number [id number]. He stated that he spoke with them about all options available including SNF and HHS. CM will continue to follow and assist as needed with discharge planning / needs. ENTERED DATE: 01/24/21 14:40 CT COMMENT TYPE: Discharge Planning REVIEWER: Tarah Quintana CM was called into the mays by patient's son stating that they would like the referral to [facility] inpatient rehab. States he has to be in quarantine for 2 weeks at [facility], "so that's a no go." I informed them that I could not guarantee a private room in inpatient rehab and he states "I don't think that's an issue now." States he chooses [facility] over [facility]. I called Kusum and another rehab screen ordered. I called Polina Jones and she states that patient's son has called her three times with questions. She states that they have more screens than beds, so bed may not be available. She states if patient needs SNF, he will need a LETY because of anxiety and a COVID test. ENTERED DATE: 01/24/21 12:29 CT COMMENT TYPE: Discharge Planning REVIEWER: Tarah Quintana CM met with patient and his son per request. Patient is sitting up in chair and asking to go to [facility] for therapy. Son states they have decided that his father go to [facility] instead of [facility]. He is aware that [facility] is a skilled unit and Medicare requires 1 hour of therapy a day instead of the 3 hours required at an inpatient facility. ZEE signed by the son for [facility]. I called and left a message on Polina Jones's answering machine and clinical faxed. I notified Sharon that patient has decided on [facility]. ENTERED DATE: 01/24/21 11:02 CT COMMENT TYPE: Discharge Planning REVIEWER: Tarah Quintana CM called [facility] to check on status of referral and Divya states she has sent it to Sharon and they are working on the screen. ENTERED DATE: 01/24/21 1:56 CT COMMENT TYPE: Discharge Planning REVIEWER: Areli Timmons CM was called to patient room to discuss d/c planning/ need. Patient and his son are in room and CM was asked when he was going to rehab. CM stated that I thought that you all was still deciding on what to do at discharge. Son stated we agreed to go to rehab because he can't go home alone the way he is. He has agreed to stay for the 7days now. CM called inpatient rehab to see if auth had been started. Kusum stated that no it was put on hold. CM went back and spoke with son that rehab will send off for auth from insurance and wait to see if patient approved. son asked if rooms are setup the same as in acute hospital. CM explained that patient they have double occupancy rooms and he stated that was a no go, He said the patient will never agree to go there and share a room. CM explained that [facility] has private rooms if wants CM to send referral there. Patient / son both agree for referral to be sent to [facility]. CM sent referral will await auth. ENTERED DATE: 01/22/21 14:49 CT COMMENT TYPE: Discharge Planning REVIEWER: Tarah Quintana CM was called to the room by the patient's nurse per son's request to discuss discharge planning/needs. Patient in agreement to discuss with son in the room. Son states his dad lives alone. States "he can't go home alone like this." States he is unable to stay with his father, but he may have someone else stay with him. I discussed availability of SNF, inpatient rehab and home health. They both seem confused as to why he can't stay in acute setting for rehab. I explained the difference between acute care and rehab care and 3 hours of therapy on inpatient rehab vs one hour in a skilled facility. Patient states he is not going to a fci. Patient and son both seem agreeable to home health on discharge. They both seem unsure about inpatient rehab, but would like me to see if his insurance will authorize it prior to going there. I explained to them both, that even if they authorize rehab and he gains his strength and wants to go home, he can go home if he desires. Patient signs a ZEE for [facility] inpatient rehab so they may screen him and get a PA from insurance. They both seem uncertain if that is the final plan and will re evaluate tomorrow. CM will continue to follow and assist with discharge planning/needs. DCP REVIEW SUMMARY ANTICIPATED D/C DATE: EXPECTED LOS : CASE STATUS: DCP Initiated INITIAL REVIEW: 01/22/2021 INITIAL REVIEWER: Tarah Quintana FINAL DISCHARGE DISPOSITION: : FINAL REVIEWER: FINAL REVIEW DATE: DCP Focus Questions & Answers DCP Screen QUESTION: ANSWER High Risk Factors: : Poor social support DCP Evaluation QUESTION: ANSWER Patient and/or caregiver agree upon recommended discharge plan? : No Patient's current cognitive status: : *Oriented to person, place, situation, time and present Patient gives permission to discuss discharge plans with: (name, relationship and number) : Fabricio Peralta son - [phone] Patient's ability to cope with chronic illness : d. No chronic illness Alternate discharge plan (if recommended plan not agreed upon by patient and/or caregiver): : May need home health if not in agreement to inpatient rehab Functional screen assessment: : No issues identified Physical Status: : Mobility impaired Equipment needed for post hospitalization: : None Is there a likelihood that the patient will require additional services to return to the preadmission environment? : Yes Functional screen comments: : New onset of weakness and falling Living Arrangements: : Home Alone with Support Partial Dependence, assistance required for: : Ambulation / Mobility Other Equipment comments: : May need a walker at discharge Results of this evaluation have been discussed with: : Patient Results of this evaluation have been discussed with: : Family Patient with capacity for self-care or can be cared for in same environment as prior to hospitalization? : No Baseline cognitive status: : *Oriented to person, place, situation, time and present Would patient like to participate in any Care Coordination programs (if applicable): : Not applicable Equipment in use: : None Psychosocial status: : Adult with physical limitations Resources / Services in place: : None Problems identified by the patient regarding discharge: : Lives alone with frequent falls DCP Re-evaluation QUESTION: ANSWER Would patient like to participate in any Care Coordination programs (if applicable): : Not applicable PATIENT: FABRICIO SHARP ENCOUNTER: [id number] MEDICAL RECORD#: [id number] ADMISSION DATE: 01/20/2021 DISCHARGE DATE: ATTENDING MD: MAX PAZ : AGE: 85 MARITAL STATUS: D DC PLAN ID: [id number] FACILITY: [facility] PRINTED ON: 01/30/21 18:55 CT All edits/amendments must be made on the electronic document DICTATION DATE: 01/30/211854 CUSTOM MOTORCYCLE PAINTER: KELSIE 01/30/211854 RPT#: [id number] DC DATE: STATUS: ADM IN [facility] [address] [place] [address] END OF REPORT
--- NOTE | 2021-01-30 19:55 | NUR ---
ASSESSMENT COMPLETE, RESPERATIONS EVEN ON RA. PT DENIES PAIN OR NEEDS AT THIS TIME, BED LOW, CL IN REACH.
[2021-01-30 20:00] VITALS: BP 99/51
--- NOTE | 2021-01-30 20:30 | NUR ---
HS MEDS GIVEN WITH FRESH ICE WATER. TYLENOL 650 MG GIVEN AT PT REQUEST.
[2021-01-31 04:00] VITALS: BP 135/65
--- NOTE | 2021-01-31 05:43 | NUR ---
I have reviewed this patient and I concur with the Shift Assessment completed by the Licensed Practical Nurse today this shift.
[2021-01-31 06:23] LABS: BASOPHILS 0.3 % (0-2); HEMATOCRIT 29.6 % (42.0-54.0); HEMOGLOBIN 9.6 g/dL (13.5-17.5); IMMATURE GRANULOCYTES 0.2 % (0-5); LYMPHOCYTES 14.7 % (15-50); MCH 28.8 pg (26.0-34.0); MCHC 32.4 g/dL (31.0-37.0); MCV 88.9 fL (80.0-100.0); MEAN PLATELET VOLUME 10.5 fL (7.4-10.4); MONOCYTES 16.6 % (2-11); NEUTROPHIL ABS# 4.12 10x3/uL (1.78-5.38); NEUTROPHILS 67.2 % (40-80); PLATELET COUNT 370 10x3/uL (130-400); RBC 3.33 10x6/uL (4.20-6.10); WBC 6.1 10x3/uL (4.8-10.8)
--- NOTE | 2021-01-31 07:10 | NUR ---
RECEIVE SHIFT REPORT. RESTING IN BED ON RIGHT SIDE. EYES CLOSED. AROUSES TO SPEECH. DENIES ANY NEEDS AT THIS TIME. CALL LIGHT IN REACH. CONTINUE POC AND SAFETY PRECAUTIONS.
[2021-01-31 07:14] LABS: ALBUMIN 2.6 g/dL (3.4-5.0); ANION GAP 11.2 mmol/L (8-16); BILIRUBIN - TOTAL 0.38 mg/dL (0.2-1.3); CALCIUM 8.2 mg/dL (8.5-10.1); CARBON DIOXIDE 25.5 mmol/L (21.0-32.0); CREATININE - SERUM 1.2 mg/dL (0.6-1.3); MAGNESIUM - SERUM 1.6 mg/dL (1.8-2.4); POTASSIUM - SERUM 3.7 mmol/L (3.5-5.1); PROTEIN - SERUM 5.6 g/dL (6.4-8.2)
[2021-01-31 08:12] VITALS: BP 133/74
--- NOTE | 2021-01-31 09:10 | NUR ---
SPOKE WITH ANSHU AT THE INSURANCE [employer] PTS DENIAL HAS BEEN OVERTURNED WITH AUTH# [id number]. HE HAS 72 HOURS TO ADMIT TO REHAB FROM TIME OF CALL. WE WILL ADMIT THE PATIENT LATER TODAY AFTER SCREEN IS COMPLETED AND ALL APPROVALS ARE IN PLACE, IF HIS PHYSICIAN FEELS HE IS READY TO COME. I HAVE RELAYED THIS INFORMATION TO VAL STERLING RN CM. THANK YOU AGAIN FOR THE REFERRAL. LANDON SMITH RN CLINICAL LIAISON, INPATIENT REHAB.
--- NOTE | 2021-01-31 10:50 | NUR ---
SITTING UP IN CHAIR. SHOWERED. STATES HE NEEDS HIS TOENAILS CLIPPED. EDUCATED HIM THAT WE CANNOT TRIM TOENAILS DUE TO POSSIBILITY OF BREAKING SKIN AND INTRODUCING INFECTION.
[2021-01-31] MEDS ORDERED: NORVASC10 MG PO (11:02)
[2021-01-31] MEDS ORDERED: TOPROL XL50 MG PO (11:03)
[2021-01-31] MEDS ORDERED: BETAPACE 80 MG80 MG PO (11:03)
[2021-01-31] MEDS ORDERED: FLOMAX0.4 MG PO (11:05)
[2021-01-31 12:16] VITALS: BP 136/80
--- NOTE | 2021-01-31 12:30 | NUR ---
D/C LEFT AND RIGHT ARM IV, TIP INTACT X2. REPORT CALLED TO CHRISTOPHER IN REHAB. SON AT SIDE. TAKEN DOWN TO 1117 VIA WHEELCHAIR. REMAINS FREE FROM INJURY. PAPERWORK WITH PATIENT.
--- NOTE | 2021-01-31 12:33 | NUR ---
Nutrition Reassessment/Follow-up: Eating well overall. S/p bronch, bronchoalveolar lavage, & transbronchial bx yesterday. Noted plans to d/c to rehab today. Diet: Cardiac PO intake: 89% avg x 7 meals No new wt; last wt: 160# (01/22) Labs noted: Na 131, Ca 8.2, Mg 1.6, Alb 2.6 Meds noted: HCTZ, Florajen, Protonix, electrolyte protocol -Nutrition needs unchanged; no new wt available. -RD will follow up within 7 days if pt still admitted.
--- NOTE | 2021-01-31 14:52 | NUR ---
PT IS NOW IN AGREEMENT TO COME TO INPATIENT REHAB AND RIGHT OF CHOICE FORM WAS SIGNED LAST NIGHT. HIS CLINICAL INFORMATION BEING SENT TO [facility], AND WE WILL HAVE TO WAIT ON THEIR DETERMINATION. THANK YOU FOR THIS REFERRAL. LANDON SMITH RN CLINICAL LIAISON, INPATIENT REHAB.
[2021-01-31 15:12] LABS: FUNGUS STAIN Final report (())
--- NOTE | 2021-01-31 15:55 | MORECARE ---
CASE MANAGEMENT DISCHARGE SUMMARY PATIENT: FABRICIO SHARP UNIT: [id number] ADM DATE: 01/20/21 AGE: 85 : 36 SEX: M ROOM/BED: D.2120 AUTHOR: SANTHOSH,DOC PHYSICIAN: REFERRING PHYSICIAN: MAX JEFFRIES DO DATE OF SERVICE: 01/31/21 Case Management Discharge Planning Summary COMMENTS ENTERED DATE: 01/30/21 18:45 CT COMMENT TYPE: Discharge Planning REVIEWER: Anthony Rivero CM Notified by [facility] that a member appeal is pending. INPT REHAB will follow up for clarification of family's claim that denial was overturned. Currently Member Appeal is pending. CM team will follow up with family ENTERED DATE: 01/30/21 3:23 CT COMMENT TYPE: Discharge Planning REVIEWER: Areli Timmons CM was notified by patient's son Farhad that [facility] told him that denial to inpatient rehab has been overturned. CM spoke with Kusum with rehab to see if she would follow up on this. CM will continue to follow and assist as needed with discharge planning / needs. ENTERED DATE: 01/26/21 18:09 CT COMMENT TYPE: Discharge Planning REVIEWER: Areli Timmons CM received notice that [facility] had denied inpatient rehab. CM notified Aminta of denial and family would like P2P. Aminta completed P2P and denial was upheld. CM notified son Farhad and he is planning to call insurance [employer] on his father's behalf. Farhad came back later and gave CM prior auth appeal number [id number]. He stated that he spoke with them about all options available including SNF and HHS. CM will continue to follow and assist as needed with discharge planning / needs. ENTERED DATE: 01/24/21 14:40 CT COMMENT TYPE: Discharge Planning REVIEWER: Tarah Quintana CM was called into the mays by patient's son stating that they would like the referral to [facility] inpatient rehab. States he has to be in quarantine for 2 weeks at [facility], "so that's a no go." I informed them that I could not guarantee a private room in inpatient rehab and he states "I don't think that's an issue now." States he chooses [facility] over [facility]. I called Kusum and another rehab screen ordered. I called Polina Jones and she states that patient's son has called her three times with questions. She states that they have more screens than beds, so bed may not be available. She states if patient needs SNF, he will need a LETY because of anxiety and a COVID test. ENTERED DATE: 01/24/21 12:29 CT COMMENT TYPE: Discharge Planning REVIEWER: Tarah Quintana CM met with patient and his son per request. Patient is sitting up in chair and asking to go to [facility] for therapy. Son states they have decided that his father go to [facility] instead of [facility]. He is aware that [facility] is a skilled unit and Medicare requires 1 hour of therapy a day instead of the 3 hours required at an inpatient facility. ZEE signed by the son for [facility]. I called and left a message on Polina Jones's answering machine and clinical faxed. I notified Sharon that patient has decided on [facility]. ENTERED DATE: 01/24/21 11:02 CT COMMENT TYPE: Discharge Planning REVIEWER: Tarah Quintana CM called [facility] to check on status of referral and Divya states she has sent it to Sharon and they are working on the screen. ENTERED DATE: 01/24/21 1:56 CT COMMENT TYPE: Discharge Planning REVIEWER: Areli Timmons CM was called to patient room to discuss d/c planning/ need. Patient and his son are in room and CM was asked when he was going to rehab. CM stated that I thought that you all was still deciding on what to do at discharge. Son stated we agreed to go to rehab because he can't go home alone the way he is. He has agreed to stay for the 7days now. CM called inpatient rehab to see if auth had been started. Kusum stated that no it was put on hold. CM went back and spoke with son that rehab will send off for auth from insurance and wait to see if patient approved. son asked if rooms are setup the same as in acute hospital. CM explained that patient they have double occupancy rooms and he stated that was a no go, He said the patient will never agree to go there and share a room. CM explained that [facility] has private rooms if wants CM to send referral there. Patient / son both agree for referral to be sent to [facility]. CM sent referral will await auth. ENTERED DATE: 01/22/21 14:49 CT COMMENT TYPE: Discharge Planning REVIEWER: Tarah Quintana CM was called to the room by the patient's nurse per son's request to discuss discharge planning/needs. Patient in agreement to discuss with son in the room. Son states his dad lives alone. States "he can't go home alone like this." States he is unable to stay with his father, but he may have someone else stay with him. I discussed availability of SNF, inpatient rehab and home health. They both seem confused as to why he can't stay in acute setting for rehab. I explained the difference between acute care and rehab care and 3 hours of therapy on inpatient rehab vs one hour in a skilled facility. Patient states he is not going to a fdc. Patient and son both seem agreeable to home health on discharge. They both seem unsure about inpatient rehab, but would like me to see if his insurance will authorize it prior to going there. I explained to them both, that even if they authorize rehab and he gains his strength and wants to go home, he can go home if he desires. Patient signs a ZEE for [facility] inpatient rehab so they may screen him and get a PA from insurance. They both seem uncertain if that is the final plan and will re evaluate tomorrow. CM will continue to follow and assist with discharge planning/needs. DCP REVIEW SUMMARY ANTICIPATED D/C DATE: EXPECTED LOS : CASE STATUS: DCP Initiated INITIAL REVIEW: 01/22/2021 INITIAL REVIEWER: Tarah Quintana FINAL DISCHARGE DISPOSITION: : FINAL REVIEWER: FINAL REVIEW DATE: DCP Focus Questions & Answers DCP Screen QUESTION: ANSWER High Risk Factors: : Poor social support DCP Evaluation QUESTION: ANSWER Patient and/or caregiver agree upon recommended discharge plan? : No Patient's current cognitive status: : *Oriented to person, place, situation, time and present Patient gives permission to discuss discharge plans with: (name, relationship and number) : Fabricio Peralta son - [phone] Patient's ability to cope with chronic illness : d. No chronic illness Alternate discharge plan (if recommended plan not agreed upon by patient and/or caregiver): : May need home health if not in agreement to inpatient rehab Functional screen assessment: : No issues identified Physical Status: : Mobility impaired Equipment needed for post hospitalization: : None Is there a likelihood that the patient will require additional services to return to the preadmission environment? : Yes Functional screen comments: : New onset of weakness and falling Living Arrangements: : Home Alone with Support Partial Dependence, assistance required for: : Ambulation / Mobility Other Equipment comments: : May need a walker at discharge Results of this evaluation have been discussed with: : Patient Results of this evaluation have been discussed with: : Family Patient with capacity for self-care or can be cared for in same environment as prior to hospitalization? : No Baseline cognitive status: : *Oriented to person, place, situation, time and present Would patient like to participate in any Care Coordination programs (if applicable): : Not applicable Equipment in use: : None Psychosocial status: : Adult with physical limitations Resources / Services in place: : None Problems identified by the patient regarding discharge: : Lives alone with frequent falls DCP Re-evaluation QUESTION: ANSWER Would patient like to participate in any Care Coordination programs (if applicable): : Not applicable PATIENT: FABRICIO SHARP ENCOUNTER: [id number] MEDICAL RECORD#: [id number] ADMISSION DATE: 01/20/2021 DISCHARGE DATE: 01/31/2021 ATTENDING MD: MAX PAZ : AGE: 85 MARITAL STATUS: D DC PLAN ID: [id number] FACILITY: [facility] PRINTED ON: 01/31/21 15:55 CT All edits/amendments must be made on the electronic document DICTATION DATE: 01/31/21 1555 LIQUIFIED NATURAL GAS TECHNICIAN: KELSIE 01/31/21 1555 RPT#: [id number] DC DATE:01/31/21 STATUS: DIS IN [facility] [address] [place] [address] END OF REPORT
[2021-01-31 16:09] LABS: ACID FAST SMEAR Negative (()); AFB SPECIMEN PROCESSING Concentration (())
--- NOTE | 2021-01-31 16:49 | NUR ---
OT NOTE: PT STATED HE IS GOING TO IP REHAB. PT COMPLETED A SERIES OF SIT TO STANDS WITH CGA. PT COMPLETED BUE TRICEP EXTENSIONS. [id number] THANK YOU,GASTON CHÁVEZ
--- NOTE | 2021-02-01 15:05 | MORECARE ---
CASE MANAGEMENT DISCHARGE SUMMARY PATIENT: FABRICIO SHARP UNIT: [id number] ADM DATE: 01/20/21 AGE: 85 : 36 SEX: M ROOM/BED: D.2120 AUTHOR: SANTHOSH,DOC PHYSICIAN: REFERRING PHYSICIAN: MAX JEFFRIES DO DATE OF SERVICE: 02/01/21 Case Management Discharge Planning Summary COMMENTS ENTERED DATE: 01/30/21 18:45 CT COMMENT TYPE: Discharge Planning REVIEWER: Anthony Rivero CM Notified by [facility] that a member appeal is pending. INPT REHAB will follow up for clarification of family's claim that denial was overturned. Currently Member Appeal is pending. CM team will follow up with family ENTERED DATE: 01/30/21 3:23 CT COMMENT TYPE: Discharge Planning REVIEWER: Areli Timmons CM was notified by patient's son Farhad that [facility] told him that denial to inpatient rehab has been overturned. CM spoke with Kusum with rehab to see if she would follow up on this. CM will continue to follow and assist as needed with discharge planning / needs. ENTERED DATE: 01/26/21 18:09 CT COMMENT TYPE: Discharge Planning REVIEWER: Areli Timmons CM received notice that [facility] had denied inpatient rehab. CM notified Aminta of denial and family would like P2P. Aminta completed P2P and denial was upheld. CM notified son Farhad and he is planning to call insurance [employer] on his father's behalf. Farhad came back later and gave CM prior auth appeal number [id number]. He stated that he spoke with them about all options available including SNF and HHS. CM will continue to follow and assist as needed with discharge planning / needs. ENTERED DATE: 01/24/21 14:40 CT COMMENT TYPE: Discharge Planning REVIEWER: Tarah Quintana CM was called into the mays by patient's son stating that they would like the referral to [facility] inpatient rehab. States he has to be in quarantine for 2 weeks at [facility], "so that's a no go." I informed them that I could not guarantee a private room in inpatient rehab and he states "I don't think that's an issue now." States he chooses [facility] over [facility]. I called Kusum and another rehab screen ordered. I called Polina Jones and she states that patient's son has called her three times with questions. She states that they have more screens than beds, so bed may not be available. She states if patient needs SNF, he will need a LETY because of anxiety and a COVID test. ENTERED DATE: 01/24/21 12:29 CT COMMENT TYPE: Discharge Planning REVIEWER: Tarah Quintana CM met with patient and his son per request. Patient is sitting up in chair and asking to go to [facility] for therapy. Son states they have decided that his father go to [facility] instead of [facility]. He is aware that [facility] is a skilled unit and Medicare requires 1 hour of therapy a day instead of the 3 hours required at an inpatient facility. ZEE signed by the son for [facility]. I called and left a message on Polina Jones's answering machine and clinical faxed. I notified Sharon that patient has decided on [facility]. ENTERED DATE: 01/24/21 11:02 CT COMMENT TYPE: Discharge Planning REVIEWER: Tarah Quintana CM called [facility] to check on status of referral and Divya states she has sent it to Sharon and they are working on the screen. ENTERED DATE: 01/24/21 1:56 CT COMMENT TYPE: Discharge Planning REVIEWER: Areli Timmons CM was called to patient room to discuss d/c planning/ need. Patient and his son are in room and CM was asked when he was going to rehab. CM stated that I thought that you all was still deciding on what to do at discharge. Son stated we agreed to go to rehab because he can't go home alone the way he is. He has agreed to stay for the 7days now. CM called inpatient rehab to see if auth had been started. Kusum stated that no it was put on hold. CM went back and spoke with son that rehab will send off for auth from insurance and wait to see if patient approved. son asked if rooms are setup the same as in acute hospital. CM explained that patient they have double occupancy rooms and he stated that was a no go, He said the patient will never agree to go there and share a room. CM explained that [facility] has private rooms if wants CM to send referral there. Patient / son both agree for referral to be sent to [facility]. CM sent referral will await auth. ENTERED DATE: 01/22/21 14:49 CT COMMENT TYPE: Discharge Planning REVIEWER: Tarah Quintana CM was called to the room by the patient's nurse per son's request to discuss discharge planning/needs. Patient in agreement to discuss with son in the room. Son states his dad lives alone. States "he can't go home alone like this." States he is unable to stay with his father, but he may have someone else stay with him. I discussed availability of SNF, inpatient rehab and home health. They both seem confused as to why he can't stay in acute setting for rehab. I explained the difference between acute care and rehab care and 3 hours of therapy on inpatient rehab vs one hour in a skilled facility. Patient states he is not going to a assisted. Patient and son both seem agreeable to home health on discharge. They both seem unsure about inpatient rehab, but would like me to see if his insurance will authorize it prior to going there. I explained to them both, that even if they authorize rehab and he gains his strength and wants to go home, he can go home if he desires. Patient signs a ZEE for [facility] inpatient rehab so they may screen him and get a PA from insurance. They both seem uncertain if that is the final plan and will re evaluate tomorrow. CM will continue to follow and assist with discharge planning/needs. DCP REVIEW SUMMARY ANTICIPATED D/C DATE: EXPECTED LOS : CASE STATUS: DCP Initiated INITIAL REVIEW: 01/22/2021 INITIAL REVIEWER: Tarah Quintana FINAL DISCHARGE DISPOSITION: : FINAL REVIEWER: FINAL REVIEW DATE: DCP Focus Questions & Answers DCP Screen QUESTION: ANSWER High Risk Factors: : Poor social support DCP Evaluation QUESTION: ANSWER Patient and/or caregiver agree upon recommended discharge plan? : No Patient's current cognitive status: : *Oriented to person, place, situation, time and present Patient gives permission to discuss discharge plans with: (name, relationship and number) : Fabricio Peralta son - [phone] Patient's ability to cope with chronic illness : d. No chronic illness Alternate discharge plan (if recommended plan not agreed upon by patient and/or caregiver): : May need home health if not in agreement to inpatient rehab Functional screen assessment: : No issues identified Physical Status: : Mobility impaired Equipment needed for post hospitalization: : None Is there a likelihood that the patient will require additional services to return to the preadmission environment? : Yes Functional screen comments: : New onset of weakness and falling Living Arrangements: : Home Alone with Support Partial Dependence, assistance required for: : Ambulation / Mobility Other Equipment comments: : May need a walker at discharge Results of this evaluation have been discussed with: : Patient Results of this evaluation have been discussed with: : Family Patient with capacity for self-care or can be cared for in same environment as prior to hospitalization? : No Baseline cognitive status: : *Oriented to person, place, situation, time and present Would patient like to participate in any Care Coordination programs (if applicable): : Not applicable Equipment in use: : None Psychosocial status: : Adult with physical limitations Resources / Services in place: : None Problems identified by the patient regarding discharge: : Lives alone with frequent falls DCP Re-evaluation QUESTION: ANSWER Would patient like to participate in any Care Coordination programs (if applicable): : Not applicable PATIENT: FABRICIO SHARP ENCOUNTER: [id number] MEDICAL RECORD#: [id number] ADMISSION DATE: 01/20/2021 DISCHARGE DATE: 01/31/2021 ATTENDING MD: MAX PAZ : AGE: 85 MARITAL STATUS: D DC PLAN ID: [id number] FACILITY: [facility] PRINTED ON: 02/01/21 15:04 CT All edits/amendments must be made on the electronic document DICTATION DATE: 02/01/21 1504 PRODUCTION TEAM LEADER: KELSIE 02/01/21 1504 RPT#: [id number] DC DATE:01/31/21 STATUS: DIS IN [facility] [address] [place] [address] END OF REPORT
== END 2021-01-31 15:15 | DRG 166 ==
LOC: D.ER 14:34 → D.M2 16:34
PROVIDERS: Emergency Medicine; Family Medicine; Internal Medicine Pulmonary Disease; ADMIT Family Medicine; ATTEND Family Medicine
PROC: 0B9C8ZX Drainage of Right Upper Lung Lobe, Via Natural or Artificial Opening Endoscopic, Diagnostic (ICD-10-PCS; 2021-01-30)
PROC: 0BBF8ZX Excision of Right Lower Lung Lobe, Via Natural or Artificial Opening Endoscopic, Diagnostic (ICD-10-PCS; principal; 2021-01-30 12:45)
DX: J18.9 Pneumonia, unspecified organism (principal); G93.41 Metabolic encephalopathy; I50.31 Acute diastolic (congestive) heart failure; I48.20 Chronic atrial fibrillation, unspecified; E87.1 Hypo-osmolality and hyponatremia; N17.9 Acute kidney failure, unspecified; J98.11 Atelectasis; J90 Pleural effusion, not elsewhere classified; D64.9 Anemia, unspecified; R91.8 Other nonspecific abnormal finding of lung field; E87.6 Hypokalemia; E83.41 Hypermagnesemia; J43.9 Emphysema, unspecified; F41.1 Generalized anxiety disorder; R55 Syncope and collapse; I71.2 Thoracic aortic aneurysm, without rupture; E27.9 Disorder of adrenal gland, unspecified; J30.9 Allergic rhinitis, unspecified; F03.90 Unspecified dementia, unspecified severity, without behavioral disturbance, psychotic disturbance, mood disturbance, and anxiety; I11.0 Hypertensive heart disease with heart failure; Z87.891 Personal history of nicotine dependence

== ENCOUNTER 2021-01-31 15:30 | Inpatient (IN) | payer MEDICARE ==
[~2021-01-31] VITALS: Ht 180.3 cm; Wt 72.6 kg
--- NOTE | ~2021-01-31 | RHP ---
PATIENT: RITA SHARP MEDICAL RECORD: [id number] ACCOUNT: [id number] LOCATION:[id number] : 37 ADMISSION DATE: 01/31/21 REHABILITATION HISTORY AND PHYSICAL EXAMINATION POST ADMISSION PHYSICIAN EXAMINATION ADMITTING DIAGNOSES: Atrial fibrillation with rapid ventricular response and syncope. HISTORY OF PRESENT ILLNESS: The patient is an 85-year-old gentleman who has got a history of hypertension, COPD and AFib. He presented to the ED on 01/20/2021 with syncope and multiple falls. He was found to be in atrial fibrillation with rapid ventricular response, stated that this was not new and his personnel representative was Dr. Lima. He has a chronic cough. He had dyspnea on exertion. Chest x-ray showed a right middle lobe pneumonia versus a mass. He does have a smoking history, he stopped about 15 years ago. He was admitted with AFib with rapid ventricular response, community-acquired pneumonia, frequent falls and syncope. He has got a history that involves cataracts, elbow surgery. He has had an acute TX in the past, acute kidney failure, transaminitis, electrolyte abnormalities, normocytic anemia, leukocytosis. The patient was seen and evaluated by pulmonary. They did a mycobacterial screen, culture, fungal stain, fungal culture. They are all still pending. He was found to have a proBNP of 10,109, alpha-1 antitrypsin of 205, an elevated B12 level. He is receiving physical and occupational therapy for which he is improving. He is a high fall risk. He has had 10 almost stumbles and falls up here with instability. He has got weakness and shortness of breath. He resides at home alone, who is independent with his care. He is having difficulty. He is not safe to return home at this time. He will require intensive therapy and be monitored closely to see if any transfusions are needed. His electrolytes are being monitored closely and replaced as indicated. His O2 sat is also being monitored closely. I am watching his respiratory status. He will require teaching about congestive heart failure, which is a new diagnosis for him. He needs further monitoring to ensure that his atrial fib and his blood pressure controlled with the new medications and adjust these as needed. These are all barriers to his discharge home. COMORBIDITIES: Include atrial fib, he has got anemia, anxiety, arrhythmia, CHF, COPD, decrease in mobility, difficulty walking, dyspnea, electrolyte abnormalities, falls, fatigue, hypoalbuminemia, hypocalcemia, hypokalemia, electrolyte abnormalities, transaminitis and weakness. PAST MEDICAL HISTORY: Once again is significant for AFib with rapid ventricular response. He has hypertension, COPD. He has had cataracts, sinusitis. PAST SURGICAL HISTORY: Includes tonsillectomy, adenoidectomy, cataract surgery, right elbow surgery, right ankle surgery. ALLERGIES: No known drug allergies. CURRENT MEDICATIONS: Include amlodipine 10 mg daily; he is on psyllium 1 packet daily; he is on Flomax, which he states he no longer is taking; he is on metoprolol 50 mg daily; Eliquis 5 mg b.i.d. and Betapace 80 mg b.i.d. HABITS: Does have a distant history of tobacco use. HISTORY AND PHYSICAL [id number] RITA SHARP FAMILY HISTORY: Noncontributory. SOCIAL HISTORY: The patient hopes to return back home and get back to his prior level of functioning. REVIEW OF SYSTEMS: GENERAL: Does complain of weakness and fatigue. HEENT: Denies cold, cough or congestion. CARDIOVASCULAR: Denies any chest. PHYSICAL EXAMINATION: VITAL SIGNS: Stable, afebrile. GENERAL: Elderly gentleman in no acute distress upon exam. HEENT: Normocephalic and atraumatic. Mucosa moist. NECK: Supple without no lymphadenopathy. LUNGS: Clear in upper ge. No wheezes or rales. HEART: Irregular rate and rhythm. ABDOMEN: Benign, soft, nontender, nondistended. EXTREMITIES: No clubbing, cyanosis or edema. NEUROLOGIC: He does have some diffuse weakness. He is unsteady on his feet. LABORATORY DATA: His white count is 6.1, H&H of 9.6 and 29.6 and platelet count is 370. Sodium 131, potassium is 3.7, BUN and creatinine of 23 and 1.2, and blood sugar is noted to be 86. ASSESSMENT: This is an 85-year-old gentleman admitted to the rehab with a working diagnosis of atrial fibrillation with rapid ventricular response, syncope and falls. The patient has potential to make improvement. We instituted the following multidisciplinary therapies including, not limited to physical, occupational, respiratory, speech, nutritional services, prosthetics and orthotics. Given his complex medical condition and risks for more complications rehabilitation services cannot be provided at a low level of care such as fci facility. PLAN: 1. Admit to [facility] for inpatient therapy to include the following disciplines; A. Physical therapy to improve gait, all transfer skills and bed mobility to a modified independent level. B. Occupational therapy to improve activities of daily living. C. Case management to help with discharge planning and placement options. D. Nutrition to help with nutritional needs. E. Rehabilitation nursing to assist in monitoring the patient's underlying medical condition and to assist with any type of bowel or bladder management. 2. The patient's current medication and Medicare will be continued. 3. The patient will be placed on standard fall precautions. 4. The patient's estimated length of stay is approximately 7-10 days. 5. Discuss this patient during care team staff meeting this week. I am going to go ahead and watch him closely on his sotalol and his metoprolol and adjust these medications as necessary. TRANSINT:[id number] Voice Confirmation ID: [id number] DOCUMENT ID: [id number] VÍCTOR notes whether there has been none or any medical/functional HISTORY AND PHYSICAL [id number] RITA SHARP change since admission: - No change since preadmission screen. VÍCTOR attests patient continues to be appropriate for IRF: - Continues to be appropriate. RAYMOND FABIAN MD CC: [id number] DICTATION DATE: 02/01/21854 TITLE CHECKER: 02/01/21935 ADM IN [facility] [address] [place] [address]
[~2021-01-31 15:30] MED LIST: AMBIEN10 MG; BETAPACE 80 MG80 MG PO; ELIQUIS5 MG PO; FLOMAX0.4 MG PO; LOPRESSOR25 MG PO; LOSARTAN-HCTZ1 EAC1 PO; METAMUCIL PACKE1 PKT PO; NORVASC10 MG PO; TOPROL XL50 MG PO
[2021-01-31 17:59] VITALS: BP 123/63; BMI 22.3
--- NOTE | 2021-01-31 19:34 | NUR ---
AWAKE AND ALERT. RESTING IN BED WITH RESPIRAITONS UNLABORED. NO ACUTE DISTRESS NOTED. CALL LIGHT IN REACH.
[2021-01-31 19:51] VITALS: BP 123/63
--- NOTE | 2021-02-01 05:51 | NUR ---
QUIET HOURS. NO ACUTE CHANGES IN CONDITION THIS SHIFT. RESTING IN BED WITH NO DISTRESS NOTED.
--- NOTE | 2021-02-01 08:00 | NUR ---
SHIFT ASSMR COMPLETED.
[2021-02-01 08:27] VITALS: BP 163/73
[2021-02-01 14:06] VITALS: Ht 180.3 cm; Wt 72.6 kg
--- NOTE | 2021-02-01 19:40 | NUR ---
AWAKE AND ALERT. RESTING IN BED WITH RESPIRATIONS UNLABORED. STATES HE HAS NOT HAD A BM YET BUT IS PASSING GAS. WILL CONTINUE TO MONITOR.
--- NOTE | 2021-02-01 19:46 | NUR ---
STATES HE HAD A LARGE BM AND FEELS VERY RELIEVED.
[2021-02-01 20:19] VITALS: BP 141/59
--- NOTE | 2021-02-02 04:52 | NUR ---
QUIET HOURS. NO ACUTE CHANGES IN CONDITION THIS SHIFT. RESTING IN BED WITH NO DISTRESS NOTED.
[2021-02-02 05:56] LABS: BASOPHILS 0.1 % (0-2); EOSINOPHILS 0.8 % (0-7); HEMATOCRIT 31.2 % (42.0-54.0); HEMOGLOBIN 10.3 g/dL (13.5-17.5); IMMATURE GRANULOCYTES 0.1 % (0-5); LYMPHOCYTE ABS# 1.06 10x3/uL (1.32-3.57); LYMPHOCYTES 13.8 % (15-50); MCH 29.3 pg (26.0-34.0); MCV 88.9 fL (80.0-100.0); MEAN PLATELET VOLUME 10.6 fL (7.4-10.4); MONOCYTES 16.5 % (2-11); NEUTROPHIL ABS# 5.28 10x3/uL (1.78-5.38); NEUTROPHILS 68.7 % (40-80); PLATELET COUNT 369 10x3/uL (130-400); RBC 3.51 10x6/uL (4.20-6.10); RDW 14.3 % (11.5-14.5)
[2021-02-02 06:32] LABS: CALC OSMOLALITY 275 mosm/kg (275-300); CALCIUM 8.7 mg/dL (8.5-10.1); CARBON DIOXIDE 26.4 mmol/L (21.0-32.0); CHLORIDE - SERUM 100 mmol/L (98-107); GLUCOSE 91 mg/dL (74-106); POTASSIUM - SERUM 3.7 mmol/L (3.5-5.1); SODIUM 134 mmol/L (136-145); eGFR NON AFRICAN AMERICAN 76 mL/min (90-120)
[2021-02-02 06:35] LABS: WBC 7.7 10x3/uL (4.8-10.8)
[2021-02-02 06:52] LABS: UREA NITROGEN 35 mg/dL (7-18)
[2021-02-02 11:03] VITALS: BP 133/73
--- NOTE | 2021-02-02 14:19 | NUR ---
PATIENT ADMITTS TO REHAB FROM ACUTE FLOOR. HIS PCP IS DR. HUTTON. DISCHARGE PLANS ARE FOR HIM TO RETURN TO HIS HOME IN [place]. WILL CONTINUE TO FOLLOW WITH PATIENT.
--- NOTE | 2021-02-02 14:26 | NUR ---
CLINICAL UPDATES ARE DUE 02/06/21, FAX . WILL CONTINUE TO FOLLOW WITH PATIENT.
--- NOTE | 2021-02-02 15:47 | NUR ---
REVIEWED MED WITH PT. HE THINKS ONE OF HIS MEDS MAKES HIS HEAD "FUZZY" AND KEEPS HIM FROM CONCENTRATING....SON IN ROOM WITH PT
[2021-02-02 21:18] VITALS: BP 151/67
[2021-02-03 10:19] VITALS: BP 153/73
--- NOTE | 2021-02-03 12:08 | NUR ---
SITTING UP IN CHAIR IN ROOM WATCHING TV. DENIES INCREASED PAIN. CALL LIGHT IN REACH
[2021-02-03 19:00] VITALS: BP 138/55
--- NOTE | 2021-02-03 19:07 | NUR ---
BEDSIDE REPORT COMPLETE. RECEIVEC PT SITTING UP IN W/C. ALERT AND ORIENTED X4/ DENIES ANY NEEDS OR PAIN. NO DISTRESS NOTED. NO IV OR OXYGEN. CALL LIGHT AND WATER WITHIN REACH. FALL PRECAUTIONS IN PLACE. CPOC
--- NOTE | 2021-02-04 01:09 | NUR ---
PT LYING IN BED ON LEFT SIDE EYES CLOSED RESTING. RR EVEN AND UNLABORED. CALL LIGHT WITHIN REACH
--- NOTE | 2021-02-04 04:12 | NUR ---
PT LYING IN BED ON RIGHT SIDE EYES CLOSED RESTING. NO DISTRESS NOTED.
[2021-02-04 11:46] VITALS: BP 163/76
--- NOTE | 2021-02-04 16:24 | NUR ---
SITTING UP IN CHAIR IN ROOM WATCHING TV. STILL HAS SOME DISCOMFORT TO LEFT SHOULDER. CALL LIGHT IN REACH
[2021-02-04 19:00] VITALS: BP 152/67
--- NOTE | 2021-02-04 21:03 | NUR ---
BEDSIDE REPORT COMPLETED. PT LYING IN BED AWAKE. ALERT AND ORIENTED. HS MEDS ADMININSTERED WHOLE WITHOUT DIFFICULTY. PT DENIES ANY NEEDS OR PAIN. BED/CHAIR ALARM WAIVER ON FILE. NO IV OR OXYGEN NOTED. CALL LIGHT AND WATER WITHIN REACH. CPOC
--- NOTE | 2021-02-05 03:05 | NUR ---
PT LYING IN BED ON LEFT SIDE EYES CLOSED RESTING. RR EVEN AND UNLABORED. CALL LIGHT WITHIN REACH.
--- NOTE | 2021-02-05 06:30 | NUR ---
PT LYING IN BED SUPINE EYES CLOSED RESTING. NO DISTRESS NOTED. CALL LIGHT AND WATER WITHIN REACH.
[2021-02-05 08:00] VITALS: BP 168/90
[2021-02-05 09:24] LABS: BASOPHILS 0.5 % (0-2); EOSINOPHILS 1.2 % (0-7); HEMATOCRIT 33.7 % (42.0-54.0); HEMOGLOBIN 10.9 g/dL (13.5-17.5); IMMATURE GRANULOCYTES 0.2 % (0-5); LYMPHOCYTE ABS# 0.47 10x3/uL (1.32-3.57); LYMPHOCYTES 7.3 % (15-50); MCH 29.4 pg (26.0-34.0); MCHC 32.3 g/dL (31.0-37.0); MCV 90.8 fL (80.0-100.0); MEAN PLATELET VOLUME 10.1 fL (7.4-10.4); MONOCYTES 12.7 % (2-11); NEUTROPHIL ABS# 5.06 10x3/uL (1.78-5.38); NEUTROPHILS 78.1 % (40-80); PLATELET COUNT 341 10x3/uL (130-400); RBC 3.71 10x6/uL (4.20-6.10); RDW 14.6 % (11.5-14.5); WBC 6.5 10x3/uL (4.8-10.8)
[2021-02-05 09:34] LABS: CALC OSMOLALITY 274 mosm/kg (275-300); CALCIUM 8.4 mg/dL (8.5-10.1); CARBON DIOXIDE 27.4 mmol/L (21.0-32.0); CHLORIDE - SERUM 100 mmol/L (98-107); POTASSIUM - SERUM 4.4 mmol/L (3.5-5.1); SODIUM 134 mmol/L (136-145); UREA NITROGEN 25 mg/dL (7-18); eGFR NON AFRICAN AMERICAN 76 mL/min (90-120)
[2021-02-05 09:43] LABS: GLUCOSE 149 mg/dL (74-106)
--- NOTE | 2021-02-05 10:47 | NUR ---
SITTING UP IN CHAIR IN ROOM. HE DENIES INCREASED PAIN OR FEELING FAINT. AMBULATES IN ROOM BY SELF. CALL LIGHT IN REACH
--- NOTE | 2021-02-05 19:34 | NUR ---
AWAKE AND ALERT. SITTING IN WHEELCHAIR IN ROOM. RESPIRAITONS UNLABORED. NO DISTRESS NOTED. CALL LIGHT IN REACH.
[2021-02-05 19:56] VITALS: BP 140/62
--- NOTE | 2021-02-06 05:18 | NUR ---
QUIET HOURS. NO ACUTE CHANGES IN CONDITION THIS SHIFT. RESTING IN BED WITH NO DISTRESS NOTED.
[2021-02-06 07:45] VITALS: BP 169/91
--- NOTE | 2021-02-06 08:00 | NUR ---
SHIFT ASSMT COMPLETED.CL IN REACH.SITTING ON SIDE OF BED GETTING READY FOR THERAPY.
--- NOTE | 2021-02-06 12:00 | NUR ---
SITTING UP IN CHAIR EATING LUNCH.
--- NOTE | 2021-02-06 12:55 | NUR ---
Nutrition Follow-up: Diet: Cardiac PO intake: ~82% average x last 5 meals. Reports that his appetite is good. Last BM: 02/04/21 Wt: 160# (02/01/21) Meds noted: metamucil Labs noted: Glu 149(H) Recommend continue current diet. RD will follow-up 02/09/21.
--- NOTE | 2021-02-06 16:00 | NUR ---
REMAINS UP IN CHAIR.VISITING WITH FAMILY MEMBER.
--- NOTE | 2021-02-06 20:00 | NUR ---
AWAKE AND ALERT. SITTING IN WHEELCHAIR IN ROOM. NO ACUTE DISTRESS NTOED. CALL LIGHT IN REACH.
[2021-02-06 21:22] VITALS: BP 123/50
--- NOTE | 2021-02-07 05:26 | NUR ---
QUIET HOURS. NO ACUTE CHANGES IN CONDITION THIS SHIFT. RESTING IN BED WITH NO DISTRESS NOTED.
--- NOTE | 2021-02-07 08:00 | NUR ---
SHIFT ASSMT COMPLETED.CL IN REACH.PLAN FOR DC HOME TODAY.
--- NOTE | 2021-02-07 09:24 | NUR ---
PATIENT DISHCARGING HOME TODAY WITH FAMILY. [facility] WILL PROVIDE THERAPY AT HOME. ZEE SINGED, COMPARE DATA REVIEWED WITH PATIENT AND HE VOICED UNDERSTANDING. NO NEW DME NEEDED AT THIS TIME. PATIENT HAS A ROLLING WALKER. IMM SERVED AND EXPLAINED, ONE GIVEN TO PATIENT AND ONE FILED IN CHART. DR. BALLARD/ GAURAV JHAVERI 02/09/21 @ 8:20, DR. DELGADO CRUZ 03/06/21 @ 10:00, DR. MUELLER/GIO 03/20/21 @ 1:15. DISCHARGE INSTRUCTIONS FAXED TO PCP, HOME HEALTH AND REVIEWD WITH PATIENT.
--- NOTE | 2021-02-07 09:44 | NUR ---
DISCHARGE CLINICALS HAVE BEEN FAXED TO [facility] , AUTH. # [id number] WITH FAX CONFORMATION RECIEVED
--- NOTE | 2021-02-07 10:30 | NUR ---
REVIEWED MEDS.[facility] HAS HOME MEDS CALLED INTO [facility] [address].WILL HAVE [facility] TO SET THERAPES UP .
[2021-02-07 11:25] VITALS: BP 166/89
--- NOTE | 2021-02-07 11:45 | NUR ---
DC'D HOME IN STABLE CONDITION.
== END 2021-02-07 11:45 | disposition home health service (06) | DRG 308 ==
LOC: D.REHAB 15:30
PROVIDERS: ADMIT Emergency Medicine; ATTEND Emergency Medicine
DX: I48.91 Unspecified atrial fibrillation (principal); J18.9 Pneumonia, unspecified organism; I50.30 Unspecified diastolic (congestive) heart failure; N17.9 Acute kidney failure, unspecified; E87.1 Hypo-osmolality and hyponatremia; J44.9 Chronic obstructive pulmonary disease, unspecified; R55 Syncope and collapse; D64.9 Anemia, unspecified; F41.9 Anxiety disorder, unspecified; I11.0 Hypertensive heart disease with heart failure; R53.83 Other fatigue; E83.51 Hypocalcemia; E87.6 Hypokalemia; E87.8 Other disorders of electrolyte and fluid balance, not elsewhere classified; R74.01 Elevation of levels of liver transaminase levels; R53.1 Weakness; R26.2 Difficulty in walking, not elsewhere classified; E83.42 Hypomagnesemia